=== PATIENT | female | born 1945 | race Caucasian/White ===

== ENCOUNTER 2018-01-02 12:47 | Inpatient (IN) ==
[2018-01-02] MEDS ORDERED: 0.9 % Sodium Chloride 1,000 ML IVC ONE (13:11)
--- NOTE | 2018-01-02 13:30 | Emergency Department Note ---
Disposition Clinical Impression: Dehydration, Renal insufficiency Hypotension Qualifiers: Hypotension type: other hypotension type Qualified Code(s): I95.89 - Other hypotension Altered mental status Qualifiers: Altered mental status type: somnolence Qualified Code(s): R40.0 - Somnolence UTI (urinary tract infection) Qualifiers: Urinary tract infection type: site unspecified Hematuria presence: without hematuria Qualified Code(s): N39.0 - Urinary tract infection, site not specified Disposition: Admitted As Inpatient Condition: Fair Altered Mental Status HPI - General Chief Complaint: ED Altered Mental Status Stated Complaint: AMS Time Seen by Provider: 01/02/18 12:55 Source: patient, EMS Limitations: altered mental status Nursing Notes Reviewed: Yes Vital Signs Reviewed: Yes - History of Present Illness HPI Narrative: 72-year-old female presents ED because of generalized weakness and altered mental status. She has been feeling ill since yesterday with weakness to the point she is unable to get herself off the toilet. Denies any new focal pain. No fevers or chills. No productive cough. She has had a couple episodes of diarrhea in the past 24 hours which is fairly typical for her. No vomiting. No abdominal pain. No dysuria, hematuria polyuria. MD complaint: altered mental status, weakness Pain Severity: mild (Chronic neck pain) Consistency of Symptoms: waxing and waning Associated symptoms: Denies: chest pain, cough, diaphoresis - Related Data Home Medications Medication Instructions Recorded Confirmed Aspirin 325 mg PO QAM 06/11/15 01/02/18 Carvedilol [Coreg] 3.125 mg PO BID 06/11/15 01/02/18 Cyanocobalamin (Vitamin B-12) 1,000 mcg IJ QMONTH 06/11/15 01/02/18 [Vitamin B-12] Ergocalciferol (VITAMIN D2) 50,000 unit PO 2XW 06/11/15 01/02/18 [Vitamin D2 (50,000 UNIT)] Furosemide [Lasix] 20 mg PO DAILY PRN 06/11/15 01/02/18 Losartan [Cozaar] 50 mg PO QAM 06/11/15 01/02/18 Pregabalin [Lyrica] 75 mg PO BID 06/11/15 01/02/18 Rifaximin [Xifaxan] 200 mg PO BID PRN 06/11/15 01/02/18 cloNIDine HCl [CloNIDine HCl] 0.1 mg PO BID 06/11/15 01/02/18 HYDROcodone/Acet 10/325 mg [[place] 1 tab PO Q6HR PRN 08/27/17 01/02/18 10-325 mg] Citalopram Hydrobromide 20 mg PO DAILY 01/02/18 01/02/18 [Citalopram HBr] Diphenoxylate/Atropine [Lomotil 1 tab PO DAILY PRN 01/02/18 01/02/18 2.5 mg/0.025 mg] Folic Acid 1 mg PO DAILY 01/02/18 01/02/18 Morphine Sulfate [Arymo ER] 15 mg PO Q12H 01/02/18 01/02/18 Allergies Allergy/AdvReac Type Severity Reaction Status Date / Time adhesive tape Allergy Blister Verified 05/20/17 15:32 Amoxicillin Allergy Rash Verified 05/20/17 15:32 Constitutional: Denies: fever, chills Cardiovascular: Denies: chest pain Respiratory: Denies: cough, dyspnea Gastrointestinal: Reports: diarrhea. Denies: abdominal pain, vomiting Genitourinary: Denies: urgency, dysuria Past Medical History - Past Medical History Attestation: Yes The following information was validated with the patient. Medical history: Reports: hypertension, osteoporosis Surgical history: Reports: cholecystectomy, knee replacement, orthopedic, other , other Psychiatric history: Reports: anxiety, depression [employer] history: Reports: other - Social History Smoking Status: Never smoker Smokeless Tobacco Status: No Alcohol use: Reports: occasionally Drug use: Reports: none Physical Exam - General Limitations: altered mental status General appearance: lethargic - Head Head exam: atraumatic, normocephalic - Eye Eye exam: Present: normal appearance - ENT ENT exam: normal exam, mucous membranes dry - Neck Neck exam: Present: normal inspection, full ROM, trachea midline - Chest Chest inspection: Present: normal inspection, symmetric chest wall rise - Respiratory Respiratory exam: Present: other (Symmetrically diminished breath sounds bilaterally) - Cardiovascular Cardiovascular exam: Present: regular rate - Abdominal Exam Abdominal exam: Present: soft, Non-Tender - Expanded Lower Extremity Exam Knee exam: Present: swelling Neurovascular/Tendon exam: Absent: motor deficit, sensory deficit - Back Exam Back exam: Absent: CVA tenderness (R), CVA tenderness (L) - Neurological Exam Neurological exam: Present: alert, oriented X3 - Psychiatric Psychiatric exam: Present: flat affect. Absent: normal affect - Skin Skin exam: Present: warm, dry Course - Reevaluation(s) Reevaluation #1: Blood pressure has improved with IV fluids and her mentation is also improved. Daughter still feels she is not back to her baseline so she will get a CT of her head prior to admission. UTIs noted he will be treated empirically. Time: 15:46 Reevaluation #2: D/W Dr. Méndez to admit Still awaiting lactate Time: 16:18 Vital Signs Temperature 98.1 F 01/02/18 12:48 Pulse Rate 68 01/02/18 12:48 Respiratory Rate 18 01/02/18 12:48 Blood Pressure 79/51 01/02/18 12:48 O2 Sat by Pulse Oximetry 98 01/02/18 12:48 Temperature 98.1 F 01/02/18 12:48 Pulse Rate 78 01/02/18 16:23 Respiratory Rate 18 01/02/18 17:18 Blood Pressure 110/73 01/02/18 17:18 O2 Sat by Pulse Oximetry 98 01/02/18 16:23 Oxygen Delivery Oxygen Delivery Room Air Altered Mental Status - Lab Data Result diagrams: 01/02/18 13:53 01/02/18 13:53 Lab Results 01/02/18 01/02/18 01/02/18 Range/Units 13:53 13:53 13:53 WBC 12.3 H (4.3-11.1) K/mcL RBC 3.84 (3.82-4.97) M/mcL Hgb 11.8 (11.5-15.4) g/dL Hct 39.6 (35.3-44.9) % MCV 103.1 H (83.0-100.0) fL MCH 30.7 (28.0-33.3) pg MCHC 29.8 L (31.6-35.5) g/dL RDW 15.1 H (11.5-14.5) % Plt Count 144 (140-400) K/mcL MPV 11.2 (9.4-12.4) fL Immature Gran % 0.7 (0-4) % Seg Neutrophils % 83.5 % Lymphocytes % 8.0 % Monocytes % 7.7 % Eosinophils % 0.0 % Basophils % 0.1 % Neutrophils # 10.2 H (1.6-8.9) K/mcL Lymphocytes # 1.0 (0.6-4.6) K/mcL Monocytes # 1.0 (0.0-1.3) K/mcL Eosinophils # 0.0 (0.0-0.6) K/mcL Basophils # 0.0 (0.0-0.2) K/mcL Sodium 137 (136-145) mEq/L Potassium 4.3 (3.5-5.1) mEq/L Chloride 107 (98-107) mEq/L Carbon Dioxide 17 L (23-29) mEq/L BUN 59 H (8-23) mg/dL Creatinine 3.00 H (0.60-1.20) mg/dL Est GFR ( Amer) 19 L (> 60) Est GFR (Non-Af Amer) 15 L (> 60) BUN/Creatinine Ratio 20 (6-26) Glucose 105 (70-105) mg/dL Calculated Osmolality 301 H (280-300) Lactic Acid (0.5-2.2) mmol/L Calcium 7.6 L (8.6-10.3) mg/dL Total Bilirubin 0.8 (0.3-1.0) mg/dL Direct Bilirubin 0.2 (0.0-0.2) mg/dL Indirect Bilirubin 0.6 (0.0-1.2) mg/dL AST 408 H (13-39) Units/L ALT 145 H (7-52) Units/L Alkaline Phosphatase 69 (34-104) Units/L Troponin I 0.04 H* (< 0.04) ng/mL Serum Total Protein 6.2 L (6.4-8.9) g/dL Albumin 3.8 (3.5-5.7) g/dL Globulin 2.4 (2.4-3.5) g/dL Albumin/Globulin Ratio 1.6 (1.1-2.2) Urine Color (Yellow) Urine Clarity (Clear) Urine pH (5.0-8.0) pH Units Ur Specific [place] (1.010-1.025) Urine Protein (Neg-Trace) mg/dL Urine Glucose (UA) (Normal) mg/dL Urine Ketones (Negative) mg/dL Urine Blood (Negative) Urine Nitrite (Negative) Urine Bilirubin (Negative) Urine Urobilinogen (Normal) mg/dL Ur Leukocyte Esterase (Negative) Urine Microscopic RBC (0-3) per hpf Urine Microscopic WBC (0-3) per hpf Ur Squamous Epith Cells (None-Few) per lpf Ur Transition Epith Cell (None-Few) per hpf Amorphous Sediment (Few) Urine Bacteria (None-Few) per hpf Ur Culture Indicated? (NO) Specimen Rejected 01/02/18 01/02/18 01/02/18 Range/Units 13:53 14:42 16:01 WBC (4.3-11.1) K/mcL RBC (3.82-4.97) M/mcL Hgb (11.5-15.4) g/dL Hct (35.3-44.9) % MCV (83.0-100.0) fL MCH (28.0-33.3) pg MCHC (31.6-35.5) g/dL RDW (11.5-14.5) % Plt Count (140-400) K/mcL MPV (9.4-12.4) fL Immature Gran % (0-4) % Seg Neutrophils % % Lymphocytes % % Monocytes % % Eosinophils % % Basophils % % Neutrophils # (1.6-8.9) K/mcL Lymphocytes # (0.6-4.6) K/mcL Monocytes # (0.0-1.3) K/mcL Eosinophils # (0.0-0.6) K/mcL Basophils # (0.0-0.2) K/mcL Sodium (136-145) mEq/L Potassium (3.5-5.1) mEq/L Chloride (98-107) mEq/L Carbon Dioxide (23-29) mEq/L BUN (8-23) mg/dL Creatinine (0.60-1.20) mg/dL Est GFR ( Amer) (> 60) Est GFR (Non-Af Amer) (> 60) BUN/Creatinine Ratio (6-26) Glucose (70-105) mg/dL Calculated Osmolality (280-300) Lactic Acid 1.5 (0.5-2.2) mmol/L Calcium (8.6-10.3) mg/dL Total Bilirubin (0.3-1.0) mg/dL Direct Bilirubin (0.0-0.2) mg/dL Indirect Bilirubin (0.0-1.2) mg/dL AST (13-39) Units/L ALT (7-52) Units/L Alkaline Phosphatase (34-104) Units/L Troponin I (< 0.04) ng/mL Serum Total Protein (6.4-8.9) g/dL Albumin (3.5-5.7) g/dL Globulin (2.4-3.5) g/dL Albumin/Globulin Ratio (1.1-2.2) Urine Color Dark Yellow (Yellow) Urine Clarity Cloudy A (Clear) Urine pH 5.0 (5.0-8.0) pH Units Ur Specific [place] 1.026 H (1.010-1.025) Urine Protein 30 H (Neg-Trace) mg/dL Urine Glucose (UA) Normal (Normal) mg/dL Urine Ketones Trace H (Negative) mg/dL Urine Blood Large H (Negative) Urine Nitrite Negative (Negative) Urine Bilirubin Small H (Negative) Urine Urobilinogen Normal (Normal) mg/dL Ur Leukocyte Esterase Moderate H (Negative) Urine Microscopic RBC 5-15 H (0-3) per hpf Urine Microscopic WBC 30-50 H (0-3) per hpf Ur Squamous Epith Cells Few (None-Few) per lpf Ur Transition Epith Cell Few (None-Few) per hpf Amorphous Sediment Few (Few) Urine Bacteria Moderate H (None-Few) per hpf Ur Culture Indicated? YES A (NO) Specimen Rejected Miscellaneous - EKG Data EKG attestation: Yes I reviewed and interpreted this EKG. EKG results narrative: Atrial and ventricular paced rhythm with a rate of 80. No further interpretation is possible TPA Checklist - LKW: 3-4.5 hrs Add. Warnings/Precautions Patient/family understanding: The patient/family members have been counseled and understood the risk, benefit , and alternatives of treatment. Critical Care Time Total Critical Care Time: 32 Attestation: The high probability of a clinically significant, sudden or life threatening deterioration of the [cerebrovascular, renal] system(s) required my full and direct attention, intervention and personal management. The aggregate critical care time was [32] minutes. This time is in addition to time spent performing reported procedures but includes the following: [x] Data Review and interpretation [x] Patient assessment and monitoring of vital signs [x] Documentation [x] Medication orders and management
[2018-01-02 14:02] LABS: Basophils % 0.1 %; Hematocrit 39.6 % (35.3-44.9); Hemoglobin 11.8 g/dL (11.5-15.4); Immature Granulocytes % 0.7 % (0-4); Mean Corpuscular HGB Conc 29.8 g/dL (31.6-35.5); Mean Corpuscular Hemoglobin 30.7 pg (28.0-33.3); Mean Corpuscular Volume 103.1 fL (83.0-100.0); Mean Platelet Volume 11.2 fL (9.4-12.4); Monocytes % 7.7 %; Neutrophils # 10.2 K/mcL (1.6-8.9); Platelet Count 144 K/mcL (140-400); Red Blood Count 3.84 M/mcL (3.82-4.97); Red Cell Distribution Width 15.1 % (11.5-14.5); Segmented Neutrophils % 83.5 %
[2018-01-02 14:22] LABS: Albumin 3.8 g/dL (3.5-5.7); Albumin/Globulin Ratio 1.6 (1.1-2.2); Bilirubin,Direct 0.2 mg/dL (0.0-0.2); Bilirubin,Indirect 0.6 mg/dL (0.0-1.2); Bilirubin,Total 0.8 mg/dL (0.3-1.0); Calcium 7.6 mg/dL (8.6-10.3); Globulin 2.4 g/dL (2.4-3.5); Potassium 4.3 mEq/L (3.5-5.1); Total Protein 6.2 g/dL (6.4-8.9)
[2018-01-02 14:31] LABS: Troponin I 0.04 ng/mL (< 0.04)
[2018-01-02 14:47] LABS: Bilirubin,Urine Small (Negative); Blood,Urine Large (Negative); Clarity,Urine Cloudy (Clear); Color,Urine Dark Yellow (Yellow); Glucose,Urine (UA) Normal (Normal); Ketones,Urine Trace mg/dL (Negative); Leukocyte Esterase,Urine Moderate (Negative); Nitrite,Urine Negative (Negative); Protein,Urine 30 mg/dL (Neg-Trace); Specific Gravity,Urine 1.026 (1.010-1.025); Urobilinogen,Urine Normal (Normal)
[2018-01-02 14:49] LABS: Bacteria,Urine Moderate per hpf (None-Few); Squamous Epithelial Cell,Urine Few per lpf (None-Few); WBC,Urine 30-50 per hpf (0-3)
[2018-01-02 15:00] LABS: Amorphous Sediment,Urine Few (Few)
[2018-01-02 15:02] LABS: Transitional Epi Cells,Urine Few per hpf (None-Few)
[2018-01-02] MEDS: Ringers Solution, Lactated 1,000 ML IVC SCH (15:14)
[2018-01-02] MEDS ORDERED: cefTRIAXone 1,000 MG in Water for inj. (sterile) 20 ML 10 ML IVP ONE (15:49)
[2018-01-02] MEDS ORDERED: Naloxone 0.4 MG/ML INJ IVP PRN (17:12)
[2018-01-02] MEDS ORDERED: 0.9 % Sodium Chloride 1,000 ML IVC SCH ×2 (17:30→20:07)
--- NOTE | 2018-01-02 17:35 | Internal Med History&Physical ---
Date of Encounter: 01/02/18 Time of Encounter: 17:08 Internal Medicine - H&P: HPI Admitted From: Home Plans for Post Hospital Care: Home History of present illness: Ms. Arnett is a 72 year old female with history of hypertension, pacemaker due to unknown reason, chronic back and neck pain and has been on lots of pain medicine was brought to emergency room by EMS after finding very drowsy and altered mental status at home by her son-in-law. Patient is staying alone for last few days as her is [place] and yesterday her daughter called and found to be little confused but is still communicative. Today morning her son- in-law came to checked on her and found on commode very drowsy with altered sensorium therefore called EMS. Patient is not able to provide very good history is very sleepy but arousable. Patient has few episodes of diarrhea in the past and decreased oral intake while taking care of her and is staying alone. She denies fever, chills, vomiting, headache, dizziness, chest pain, shortness of breath, tingling numbness. Decreased urine output. Past Med Surg Social Fam HX - Past Medical History Medical history: hypertension, osteoporosis Psychiatric history: anxiety, depression - Past Surgical History Surgical History: cholecystectomy, knee replacement, orthopedic, other, other - Social History Smoking Status: Never smoker Smokeless Tobacco Status: No Alcohol use: occasionally Drug use: none - Family History Mother Hx Family Cardiac Disorders: Yes (angina) Internal Medicine - H&P: Meds Aspirin 325 mg PO QAM 06/11/15 [History] Carvedilol [Coreg] 3.125 mg PO BID 06/11/15 [History] Cyanocobalamin (Vitamin B-12) [Vitamin B-12] 1,000 mcg IJ QMONTH 06/11/15 [ History] Ergocalciferol (VITAMIN D2) [Vitamin D2 (50,000 UNIT)] 50,000 unit PO 2XW [History] Furosemide [Lasix] 20 mg PO DAILY PRN 06/11/15 [History] Losartan [Cozaar] 50 mg PO QAM 06/11/15 [History] Pregabalin [Lyrica] 75 mg PO BID 06/11/15 [History] Rifaximin [Xifaxan] 200 mg PO BID PRN 06/11/15 [History] cloNIDine HCl [CloNIDine HCl] 0.1 mg PO BID 06/11/15 [History] HYDROcodone/Acet 10/325 mg [[place] 10-325 mg] 1 tab PO Q6HR PRN 08/27/17 [History ] Citalopram Hydrobromide [Citalopram HBr] 20 mg PO DAILY 01/02/18 [History] Diphenoxylate/Atropine [Lomotil 2.5 mg/0.025 mg] 1 tab PO DAILY PRN 01/02/18 [ History] Folic Acid 1 mg PO DAILY 01/02/18 [History] Morphine Sulfate [Arymo ER] 15 mg PO Q12H 01/02/18 [History] 3 Allergy/AdvReac Type Severity Reaction Status Date / Time adhesive tape Allergy Blister Verified 05/20/17 15:32 Amoxicillin Allergy Rash Verified 05/20/17 15:32 All Systems PM: A 10-system review of systems was performed and is negative for pertinent findings except as documented above in the HPI. - Constitutional Vitals: Temp Pulse Resp BP Pulse Ox 98.1 F 78 14 106/85 98 01/02/18 12:48 01/02/18 16:23 01/02/18 16:23 01/02/18 16:23 01/02/18 16:23 Exam: General appearance: Very sleepy, drowsy but arousable. Daughter at bedside who was the main source of history Head exam: Atraumatic Eye exam: EOMI, PERRLA ENT exam: Dry oral mucosa Neck nontender, supple Respiratory exam: Clear to auscultation bilaterally Cardiovascular exam: Regular rate and rhythm, no systolic murmur Abdominal exam: Soft, nontender, nondistended, positive bowel sounds Extremities exam: No calf tenderness, no pedal edema Present: Skin-no rash, warm, dry, intact Neurological exam: Oriented to person and place and time but very slow response due to being very sleepy, CN II-XII intact, no focal deficits. No facial droop. Normal speech. Internal Med - H&P Results - Labs CBC & Chem 7: 01/02/18 13:53 01/02/18 13:53 - Assessment and plan (1) Altered mental status Current Visit: Yes Status: Acute Assessment and plan: No focal neurological deficit. CT brain with no acute finding. Most likely due to underlying UTI and dehydration. Treat underlying cause. Close monitoring. Fall precaution. May need PT evaluation once recover with acute illness. Would also decrease medication especially narcotics that can cause sedation thinking contributing factor for altered sensorium. Qualifiers: Altered mental status type: somnolence Qualified Code(s): R40.0 - Somnolence (2) Hypotension Current Visit: Yes Status: Acute Assessment and plan: Most likely volume depletion. She has been also on diuretic and decreased oral in take and last couple of days while taking care of her who is in [place] hospital. Volume resuscitation done the ER. Will continue normal saline 100 mL per hour with a strict I&O. Blood pressure started to improve after fluid resuscitation and also slight better mentally status therefore close monitoring needed. Qualifiers: Qualified Code(s): I95.9 - Hypotension, unspecified (3) SANTANA (acute kidney injury) Current Visit: Yes Status: Acute Assessment and plan: Patient had normal creatinine level in October 2017. Most likely prerenal due to volume depletion. Patient also has been taking diuretic medicine and decreased by mouth intake and chronic persistent diarrhea. Avoid nephrotoxic drugs. Close monitoring of BMP. Gentle hydration with I&O's. (4) UTI (urinary tract infection) Current Visit: Yes Status: Acute Assessment and plan: Urine culture and blood culture ordered in the ER. Will also order lactate. Renal dose adjusted Levaquin is started. Patient has amoxicillin allergy, Rocephin was given in the ER. Patient had microscopic hematuria on urinalysis that could be due to acute infection and urine analysis can be repeated after the treatment. Qualifiers: Qualified Code(s): N39.0 - Urinary tract infection, site not specified; R31.9 - Hematuria, unspecified; R31.9 - Hematuria, unspecified (5) Troponin level elevated Current Visit: Yes Status: Acute Assessment and plan: Patient denies any chest pain or angina-like: Symptom. That could be related with acute illness but will monitor troponin closely. Keep in telemetry. Home medication is started. Held beta ijeoma due to low blood pressure but will resume once blood pressure is stabilized. (6) DVT prophylaxis Current Visit: No Status: Acute Assessment and plan: SCDs - Time Spent With Patient Total time spent is greater than 50% in coordination of care (as documented) at patient's floor/unit and/or counseling patient:
[2018-01-02] MEDS ORDERED: Levofloxacin 500 MG/100 ML 500 MG/100 ML BAG IVPB SCH (18:00)
[2018-01-02 19:30] LABS: Creatine Kinase > 20000 Units/L (30-223)
[2018-01-03 02:26] LABS: Basophils % 0.2 %; Eosinophils % 0.1 %; Hematocrit 32.3 % (35.3-44.9); Immature Granulocytes % 0.4 % (0-4); Lymphocytes # 0.7 K/mcL (0.6-4.6); Lymphocytes % 7.1 %; Mean Corpuscular Hemoglobin 30.5 pg (28.0-33.3); Mean Corpuscular Volume 98.5 fL (83.0-100.0); Monocytes # 0.6 K/mcL (0.0-1.3); Monocytes % 6.7 %; Neutrophils # 8.2 K/mcL (1.6-8.9); Platelet Count 121 K/mcL (140-400); Red Blood Count 3.28 M/mcL (3.82-4.97); Red Cell Distribution Width 15.2 % (11.5-14.5); Segmented Neutrophils % 85.5 %
[2018-01-03 02:45] LABS: Calcium 6.7 mg/dL (8.6-10.3); Chol/HDL Ratio 2.3 (0-4.9); Potassium 4.2 mEq/L (3.5-5.1)
[2018-01-03] MEDS: Ringers Solution, Lactated 1,000 ML IVC SCH ×2 (05:59→23:00)
--- NOTE | 2018-01-03 07:43 | Nephrology Consult Note ---
Date of Encounter: 01/03/18 Time of Encounter: 07:40 Assessment and Plan (1) SANTANA (acute kidney injury) Current Visit: Yes Status: Acute Patient has acute kidney injury in the setting of rhabdomyolysis. Serum creatinine may be reaching a plateau. She has associated metabolic acidosis and hypocalcemia because of the rhabdomyolysis. We will change her maintenance IV to include some bicarbonate replacement. Her calcium should not be replaced unless she becomes symptomatic from hypocalcemia. (2) Rhabdomyolysis Current Visit: Yes Status: Acute Qualifiers: Rhabdomyolysis type: non-traumatic Qualified Code(s): M62.82 - Rhabdomyolysis (3) Altered mental status Current Visit: Yes Status: Acute Qualifiers: Altered mental status type: somnolence Qualified Code(s): R40.0 - Somnolence History of Present Illness - History of Present Illness This is a 72-year-old female who was found by her family at home. She apparently was confused and according to history had been sitting on the commode at home for a long time. This morning the patient is more alert and oriented. She reports that she was told by her family that she has been on the commode for about 12 hours or so. Patient presented with rhabdomyolysis and acute kidney injury. Creatinine on admission was 3.00. Creatinine this morning is relatively stable at 3.13. Baseline creatinine is 0.72. On presentation patient was hypotensive with a blood pressure of 79/51. She has been maintained on IV fluids overnight. Current blood pressure 108/70. She is complaining of muscle soreness in the gluteal area and also complaining of a sore neck. CPK yesterday was greater than 20,000. Past Med Surg Social Fam HX - Past Medical History Medical history: hypertension, osteoporosis Psychiatric history: anxiety, depression - Past Surgical History Surgical History: cholecystectomy, knee replacement, orthopedic, other, other - Social History Smoking Status: Never smoker Smokeless Tobacco Status: No Alcohol use: occasionally Drug use: none - Family History Mother Hx Family Cardiac Disorders: Yes (angina) Medications and Allergies Aspirin 325 mg PO QAM 06/11/15 [History] Carvedilol [Coreg] 3.125 mg PO BID 06/11/15 [History] Cyanocobalamin (Vitamin B-12) [Vitamin B-12] 1,000 mcg IJ QMONTH 06/11/15 [ History] Ergocalciferol (VITAMIN D2) [Vitamin D2 (50,000 UNIT)] 50,000 unit PO 2XW [History] Furosemide [Lasix] 20 mg PO DAILY PRN 06/11/15 [History] Losartan [Cozaar] 50 mg PO QAM 06/11/15 [History] Pregabalin [Lyrica] 75 mg PO BID 06/11/15 [History] Rifaximin [Xifaxan] 200 mg PO BID PRN 06/11/15 [History] cloNIDine HCl [CloNIDine HCl] 0.1 mg PO BID 06/11/15 [History] HYDROcodone/Acet 10/325 mg [[place] 10-325 mg] 1 tab PO Q6HR PRN 08/27/17 [History ] Citalopram Hydrobromide [Citalopram HBr] 20 mg PO DAILY 01/02/18 [History] Diphenoxylate/Atropine [Lomotil 2.5 mg/0.025 mg] 1 tab PO DAILY PRN 01/02/18 [ History] Folic Acid 1 mg PO DAILY 01/02/18 [History] Morphine Sulfate [Arymo ER] 15 mg PO Q12H 01/02/18 [History] 3 Allergy/AdvReac Type Severity Reaction Status Date / Time adhesive tape Allergy Blister Verified 05/20/17 15:32 Amoxicillin Allergy Rash Verified 05/20/17 15:32 Review of Systems Constitutional: weakness Eyes: bilateral: blurred vision (patient denies), diplopia (patient denies) Nose, mouth and throat: no dizziness, no headache(s) Cardiovascular: no chest pain, no palpitations Respiratory: no cough, no dyspnea Gastrointestinal: no abdominal pain, no change in bowel habits Musculoskeletal: muscle cramps, muscle weakness, myalgias, neck pain, no numbness Integumentary: no hirsutism, no striae Neurological: weakness Psychiatric: no depression, no difficulty concentrating Endocrine: as per HPI Hematologic/Lymphatic: no easy bruising, no lymphadenopathy Exam - Vital Signs Vital signs: Initial Vital Signs Temp Pulse Resp BP Pulse Ox 98.1 F 68 18 79/51 98 01/02/18 12:48 01/02/18 12:48 01/02/18 12:48 01/02/18 12:48 01/02/18 12:48 Vital Signs - Last 8 Hours Temp Pulse Resp BP Pulse Ox 01/03/18 07:15 99.6 F 80 13 99/62 95 01/03/18 03:35 99.8 F H 73 18 108/70 93 01/02/18 23:52 99.2 F 90 18 95/61 96 Intake and Output 01/02/18 01/02/18 01/03/18 15:59 23:59 07:59 Intake Total 512 / 512 488 / 488 Balance 512 / 512 488 / 488 Intake: IV Fluids 512 / 512 488 / 488 Lactated Ringers 1,000 ML @ 150 512 / 512 488 / 488 mls/hr IVC .[id number] [facility]OR[facility] Rx#: [id number] Other: Weight 96.9 kg 103.1 kg Blood Glucose* 84 88 Patient Weight 01/03/18 23:59 Weight 103.1 kg - General Appearance Exam: Patient appears alert and oriented. She is able to answer questions. She is in no acute distress. Blood pressure 108/70. Lungs essentially clear to auscultation. Heart regular rate and rhythm without any friction rub. Abdomen shows normal bowel sounds bruits masses or megaly or tenderness. Lower extremities show no edema. There are no abnormal skin rashes. Results - Lab Results 01/03/18 02:06 01/03/18 02:06 Most recent lab results Calcium 6.7 mg/dL (8.6-10.3) L 01/03/18 02:06 Consult Discharge Plan - Plan Referrals: NONE,PCP [Primary Care Provider] -
[2018-01-03] MEDS ORDERED: Sodium Bicarbonate 100 MEQ in 0.45 % Sodium Chloride 1,000 ML IVC SCH ×2 (07:45→13:54)
[2018-01-03] MEDS: Aspirin 325 MG TABLET PO SCH (07:52)
[2018-01-03] MEDS: Folic Acid 1 MG TABLET PO SCH (07:52)
[2018-01-03 08:47] LABS: Troponin I 0.08 ng/mL (< 0.04)
[2018-01-03 09:22] LABS: Phosphorous 8.6 mg/dL (2.7-4.5); Uric Acid 7.2 mg/dL (2.3-7.6)
--- NOTE | 2018-01-03 13:57 | Internal Med Progress Note ---
Date of Encounter: 01/03/18 Time of Encounter: 13:45 - Assessment and plan (1) Rhabdomyolysis Current Visit: Yes Status: Acute Assessment and plan: Patient has had no urine since admission. The bladder scan the patient during my exam. Around 900 mL of residual urine noted. Hernandez catheter will be placed. We will double the rate of IV fluids 200 mL and output target of 200 mL /h off urine output. Also check a CK now. (2) SANTANA (acute kidney injury) Current Visit: Yes Status: Acute Assessment and plan: Progressive worsening of kidney function noted. She is not on a high rate of IV fluids which we will increase now. Explained to patient that if the function does not improve and his progressive deterioration with acidemia or electrolyte disturbance, she may need dialysis. (3) UTI (urinary tract infection) Current Visit: Yes Status: Acute Assessment and plan: Continue Levaquin and follow urine and blood cultures. Gram-negative janessa noted in urine culture. Qualifiers: Qualified Code(s): N39.0 - Urinary tract infection, site not specified (4) Troponin level elevated Current Visit: Yes Status: Acute Assessment and plan: Related to rhabdomyolysis. (5) DVT prophylaxis Current Visit: No Status: Acute Assessment and plan: Lovenox - Time Spent With Patient Total time spent is greater than 50% in coordination of care (as documented) at patient's floor/unit and/or counseling patient: 25 - 35 minutes - Subjective Interval history: She reports urinary distention. Has not urinated since admission. Also noted were pain in the abdomen and gluteal areas per patient. - Constitutional Vitals: Temp Pulse Resp BP Pulse Ox 99.0 F 77 14 96/60 95 01/03/18 11:52 01/03/18 11:52 01/03/18 11:52 01/03/18 11:52 01/03/18 11:52 General appearance: Present: A&O X 3 Exam: Physical exam Gen: Comfortable, laying in bed, in no visible distress, morbidly obese HEENT: Normocephalic, atraumatic. No conjunctival icterus. Moist oral mucosa. Neck: Supple Lungs: Clear to auscultation, no foreign sounds Heart: Normal S1-S2, no murmurs rubs or gallops Abdomen: Normoactive bowel sounds, no guarding rigidity or tenderness Extremities: Trace edema of lower extremities. No clubbing or cyanosis Neuro: Alert oriented 3, no focal deficits Skin: Right gluteal area has salmon-colored marking at the site off muscle damage. There is bruising with purpura of the right arm. Pulses are intact in both lower extremities. Internal Medicine: Result - Labs CBC & Chem 7: 01/03/18 02:06 01/03/18 02:06 Labs: Short CBC 01/02/18 01/02/18 01/02/18 Range/Units 17:43 18:20 20:01 WBC (4.3-11.1) K/mcL RBC (3.82-4.97) M/mcL Hgb (11.5-15.4) g/dL Hct (35.3-44.9) % MCV (83.0-100.0) fL MCH (28.0-33.3) pg MCHC (31.6-35.5) g/dL RDW (11.5-14.5) % Plt Count (140-400) K/mcL MPV (9.4-12.4) fL Immature Gran % (0-4) % Seg Neutrophils % % Lymphocytes % % Monocytes % % Eosinophils % % Basophils % % Neutrophils # (1.6-8.9) K/mcL Lymphocytes # (0.6-4.6) K/mcL Monocytes # (0.0-1.3) K/mcL Eosinophils # (0.0-0.6) K/mcL Basophils # (0.0-0.2) K/mcL Sodium (136-145) mEq/L Potassium (3.5-5.1) mEq/L Chloride (98-107) mEq/L Carbon Dioxide (23-29) mEq/L BUN (8-23) mg/dL Creatinine (0.60-1.20) mg/dL Est GFR ( Amer) (> 60) Est GFR (Non-Af Amer) (> 60) BUN/Creatinine Ratio (6-26) Glucose (70-105) mg/dL POC Glucose 84 (70-99) mg/dL Calculated Osmolality (280-300) Lactic Acid 2.0 (0.5-2.2) mmol/L Uric Acid (2.3-7.6) mg/dL Calcium (8.6-10.3) mg/dL Phosphorus (2.7-4.5) mg/dL Troponin I 0.06 H* (< 0.04) ng/mL Triglycerides (< 150) mg/dL Cholesterol (< 200) mg/dL LDL Cholesterol, Calc (0-99) mg/dL VLDL Cholesterol, Calc (< 31) mg/dL HDL Cholesterol (40-59) mg/dL Cholesterol/HDL Ratio (0-4.9) Specimen Rejected 01/03/18 01/03/18 01/03/18 Range/Units 02:06 02:06 02:06 WBC 9.6 (4.3-11.1) K/mcL RBC 3.28 L (3.82-4.97) M/mcL Hgb 10.0 L D (11.5-15.4) g/dL Hct 32.3 L (35.3-44.9) % MCV 98.5 (83.0-100.0) fL MCH 30.5 (28.0-33.3) pg MCHC 31.0 L (31.6-35.5) g/dL RDW 15.2 H (11.5-14.5) % Plt Count 121 L (140-400) K/mcL MPV 11.0 (9.4-12.4) fL Immature Gran % 0.4 (0-4) % Seg Neutrophils % 85.5 % Lymphocytes % 7.1 % Monocytes % 6.7 % Eosinophils % 0.1 % Basophils % 0.2 % Neutrophils # 8.2 (1.6-8.9) K/mcL Lymphocytes # 0.7 (0.6-4.6) K/mcL Monocytes # 0.6 (0.0-1.3) K/mcL Eosinophils # 0.0 (0.0-0.6) K/mcL Basophils # 0.0 (0.0-0.2) K/mcL Sodium 136 (136-145) mEq/L Potassium 4.2 (3.5-5.1) mEq/L Chloride 108 H (98-107) mEq/L Carbon Dioxide 17 L (23-29) mEq/L BUN 63 H (8-23) mg/dL Creatinine 3.13 H (0.60-1.20) mg/dL Est GFR ( Amer) 18 L (> 60) Est GFR (Non-Af Amer) 15 L (> 60) BUN/Creatinine Ratio 20 (6-26) Glucose 103 (70-105) mg/dL POC Glucose (70-99) mg/dL Calculated Osmolality 300 (280-300) Lactic Acid (0.5-2.2) mmol/L Uric Acid (2.3-7.6) mg/dL Calcium 6.7 L (8.6-10.3) mg/dL Phosphorus (2.7-4.5) mg/dL Troponin I 0.07 H* (< 0.04) ng/mL Triglycerides 103 (< 150) mg/dL Cholesterol 101 (< 200) mg/dL LDL Cholesterol, Calc 36 (0-99) mg/dL VLDL Cholesterol, Calc 21 (< 31) mg/dL HDL Cholesterol 44 (40-59) mg/dL Cholesterol/HDL Ratio 2.3 (0-4.9) Specimen Rejected 01/03/18 01/03/18 Range/Units 08:02 08:02 WBC (4.3-11.1) K/mcL RBC (3.82-4.97) M/mcL Hgb (11.5-15.4) g/dL Hct (35.3-44.9) % MCV (83.0-100.0) fL MCH (28.0-33.3) pg MCHC (31.6-35.5) g/dL RDW (11.5-14.5) % Plt Count (140-400) K/mcL MPV (9.4-12.4) fL Immature Gran % (0-4) % Seg Neutrophils % % Lymphocytes % % Monocytes % % Eosinophils % % Basophils % % Neutrophils # (1.6-8.9) K/mcL Lymphocytes # (0.6-4.6) K/mcL Monocytes # (0.0-1.3) K/mcL Eosinophils # (0.0-0.6) K/mcL Basophils # (0.0-0.2) K/mcL Sodium (136-145) mEq/L Potassium (3.5-5.1) mEq/L Chloride (98-107) mEq/L Carbon Dioxide (23-29) mEq/L BUN (8-23) mg/dL Creatinine (0.60-1.20) mg/dL Est GFR ( Amer) (> 60) Est GFR (Non-Af Amer) (> 60) BUN/Creatinine Ratio (6-26) Glucose (70-105) mg/dL POC Glucose (70-99) mg/dL Calculated Osmolality (280-300) Lactic Acid (0.5-2.2) mmol/L Uric Acid 7.2 (2.3-7.6) mg/dL Calcium (8.6-10.3) mg/dL Phosphorus 8.6 H (2.7-4.5) mg/dL Troponin I 0.08 H* (< 0.04) ng/mL Triglycerides (< 150) mg/dL Cholesterol (< 200) mg/dL LDL Cholesterol, Calc (0-99) mg/dL VLDL Cholesterol, Calc (< 31) mg/dL HDL Cholesterol (40-59) mg/dL Cholesterol/HDL Ratio (0-4.9) Specimen Rejected Hemolyzed BMP 01/03/18 02:06 Sodium 136 Potassium 4.2 Chloride 108 H Carbon Dioxide 17 L BUN 63 H Creatinine 3.13 H Glucose 103 Calcium 6.7 L Cardiac Enzymes 01/02/18 01/03/18 01/03/18 Range/Units 20:01 02:06 08:02 Troponin I 0.06 H* 0.07 H* 0.08 H* (< 0.04) ng/mL Consult Discharge Plan - Plan Referrals: NONE,PCP [Primary Care Provider] -
[2018-01-03] MEDS: *HR* HYDROcodone/Acet 10/325 mg TABLET PO PRN (18:16)
[2018-01-03] MEDS ORDERED: 0.9 % Sodium Chloride 500 ML IVC ONE (22:04)
[2018-01-04] MEDS ORDERED: 0.9 % Sodium Chloride 1,000 ML IVC ONE (00:29)
[2018-01-04] MEDS: *HR* HYDROcodone/Acet 10/325 mg TABLET PO PRN ×3 (01:44→17:25)
[2018-01-04 05:08] LABS: Eosinophils # 0.1 K/mcL (0.0-0.6); Eosinophils % 1.3 %; Hematocrit 30.3 % (35.3-44.9); Hemoglobin 9.7 g/dL (11.5-15.4); Immature Granulocytes % 0.7 % (0-4); Lymphocytes # 0.8 K/mcL (0.6-4.6); Lymphocytes % 11.2 %; Mean Corpuscular Hemoglobin 31.4 pg (28.0-33.3); Mean Corpuscular Volume 98.1 fL (83.0-100.0); Mean Platelet Volume 11.9 fL (9.4-12.4); Monocytes # 0.5 K/mcL (0.0-1.3); Monocytes % 7.9 %; Neutrophils # 5.3 K/mcL (1.6-8.9); Platelet Count 109 K/mcL (140-400); Red Blood Count 3.09 M/mcL (3.82-4.97); Red Cell Distribution Width 15.5 % (11.5-14.5); Segmented Neutrophils % 78.9 %
[2018-01-04 05:49] LABS: Albumin 2.3 g/dL (3.5-5.7); Albumin/Globulin Ratio 1.3 (1.1-2.2); Bilirubin,Total 0.3 mg/dL (0.3-1.0); Calcium 7.1 mg/dL (8.6-10.3); Globulin 1.8 g/dL (2.4-3.5); Magnesium 1.9 mg/dL (1.6-2.6); Phosphorous 7.8 mg/dL (2.7-4.5); Potassium 4.2 mEq/L (3.5-5.1); Total Protein 4.1 g/dL (6.4-8.9)
[2018-01-04] MEDS: Folic Acid 1 MG TABLET PO SCH (07:40)
[2018-01-04] MEDS: Aspirin 325 MG TABLET PO SCH (07:40)
[2018-01-04] MEDS: Sodium Bicarbonate 100 MEQ in 0.45 % Sodium Chloride 1,000 ML IVC SCH ×3 (08:44→20:34)
--- NOTE | 2018-01-04 09:44 | Nephrology Progress Note ---
Date of Encounter: 01/04/18 Time of Encounter: 09:42 - Assessment and Plan (1) SANTANA (acute kidney injury) Current Visit: Yes Status: Acute Patient has acute kidney injury in the setting of rhabdomyolysis. Her azotemia continues to worsen. CPK is improving. She has associated hypocalcemia and hyperphosphatemia. Uric acid is satisfactory. She will continue on IV fluids with bicarbonate replacement. We will continue to monitor her renal function. (2) Rhabdomyolysis Current Visit: Yes Status: Acute Qualifiers: Rhabdomyolysis type: non-traumatic Qualified Code(s): M62.82 - Rhabdomyolysis (3) Altered mental status Current Visit: Yes Status: Acute Qualifiers: Altered mental status type: somnolence Qualified Code(s): R40.0 - Somnolence Subjective Interval history: Patient continues to experience some muscle soreness. Her CPK is decreasing but unfortunately her creatinine continues to worsen. CO2 was 19. Potassium is normal. Objective - Vital Signs Vital signs: Vital Signs Temp Pulse Resp BP Pulse Ox 01/04/18 07:38 98.2 F 76 20 137/73 95 01/04/18 04:27 98.2 F 72 16 120/74 94 01/03/18 23:31 98.2 F 74 16 132/67 94 01/03/18 18:32 98.7 F 75 16 101/60 95 01/03/18 16:47 98.1 F 84 14 123/75 97 01/03/18 11:52 99.0 F 77 14 96/60 95 Intake and Output 01/03/18 01/04/18 01/04/18 23:59 07:59 15:59 Intake Total 1900 / 1900 320 / 320 Output Total 120 / 120 800 / 800 Balance 1780 / 1780 -480 / -480 Intake: IV Fluids 1300 / 1300 Sodium Bicarbonate 100 MEQ In 0 1300 / 1300 .45% Sodium Chloride 1000 Ml 1000 Ml 1,000 ML @ 200 mls/hr IVC .[id number] [facility] Rx#: [id number] Oral 600 / 600 320 / 320 Output: Urine 100 / 100 Catheter 120 / 120 700 / 700 Urethral (Hernandez) 20 / 20 250 / 250 Other: Weight 102.4 kg Blood Glucose* 117 89 Patient Weight 01/04/18 23:59 Weight 102.4 kg - General Appearance Exam: Patient appears somewhat sedated. She does answer questions but it takes her a while. She is in no acute distress. Lungs clear to auscultation. Heart regular rate and rhythm. Abdomen is benign. There is no lower extremity swelling. - Lab 01/04/18 04:19 01/04/18 04:19 Most recent lab results Calcium 7.1 mg/dL (8.6-10.3) L 01/04/18 04:19 Phosphorus 7.8 mg/dL (2.7-4.5) H 01/04/18 04:19 Magnesium 1.9 mg/dL (1.6-2.6) 01/04/18 04:19 Consult Discharge Plan - Plan Referrals: NONE,PCP [Primary Care Provider] -
[2018-01-04] MEDS: cefTRIAXone 2,000 MG in Water for inj. (sterile) 20 ML 20 ML IVP SCH (14:31)
[2018-01-04] MEDS: cloNIDine HCl 0.1 MG TABLET PO SCH (20:35)
--- NOTE | 2018-01-04 22:03 | Internal Med Progress Note ---
Date of Encounter: 01/04/18 Time of Encounter: 11:17 - Assessment and plan (1) UTI (urinary tract infection) Current Visit: Yes Status: Acute Assessment and plan: Improving. Switch to IV rocephin based on urine culture and sensitivity. Continue IVF as per below. Qualifiers: Urinary tract infection type: acute cystitis Hematuria presence: with hematuria Qualified Code(s): N30.01 - Acute cystitis with hematuria (2) SANTANA (acute kidney injury) Current Visit: Yes Status: Acute Assessment and plan: Cr worsened. Nephrology consulted; appreciate input. IVF adjusted today by them. Repeat BMP in AM. (3) Rhabdomyolysis Current Visit: Yes Status: Acute Assessment and plan: Continue IVF as per above. Hernandez catheter placed. Continue to monitor I&Os. Repeat CK in AM. (4) Troponin level elevated Current Visit: Yes Status: Acute Assessment and plan: Likely related to rhabdomyolysis. (5) Debility Current Visit: Yes Status: Acute Assessment and plan: Generalized debility. PT/OT consulted. Plan for discharge to [facility] tomorrow. (6) DVT prophylaxis Current Visit: Yes Status: Acute Assessment and plan: Continue lovenox. - Time Spent With Patient Total time spent is greater than 50% in coordination of care (as documented) at patient's floor/unit and/or counseling patient: less than 15 minutes - Subjective Interval history: Patient had no acute events overnight. She denies chest pain, SOB, dysuria, fever, or chills. She has no complaints today. - Constitutional Vitals: Temp Pulse Resp BP Pulse Ox 98.4 F 76 15 146/77 92 01/04/18 20:46 01/04/18 20:46 01/04/18 20:46 01/04/18 20:46 01/04/18 20:46 General appearance: Present: cooperative, A&O X 3, pleasant, no acute distress, answers questions appropriately - Respiratory Respiratory exam: Present: CTAB. Absent: accessory muscle use, rales, rhonchi, wheezes Additional comments: Normal WOB - Cardiovascular Cardiovascular exam: Present: RRR, +S1, +S2. Absent: diastolic murmur, gallop, rubs, systolic murmur Additional comments: No BLE edema - GI/Abdominal GI/Abdominal exam: Present: normal bowel sounds, soft. Absent: distended, guarding, hepatomegaly, mass, rebound, splenomegaly Additional comments: Mild TTP across lower abdomen - Psychiatric Psychiatric exam: Present: normal affect, normal mood. Absent: agitated, anxious, depressed - Skin Skin exam: Present: dry, intact, warm. Absent: cyanosis, rash Internal Medicine: Result - Labs CBC & Chem 7: 01/04/18 04:19 01/04/18 04:19 Labs: Short CBC 01/04/18 Range/Units 04:19 WBC 6.7 (4.3-11.1) K/mcL Hgb 9.7 L (11.5-15.4) g/dL Hct 30.3 L (35.3-44.9) % Plt Count 109 L (140-400) K/mcL Neutrophils # 5.3 (1.6-8.9) K/mcL BMP 01/04/18 04:19 Sodium 139 Potassium 4.2 Chloride 106 Carbon Dioxide 19 L BUN 75 H Creatinine 4.24 H Glucose 95 Calcium 7.1 L Liver Function 01/04/18 Range/Units 04:19 Total Bilirubin 0.3 (0.3-1.0) mg/dL AST 151 H (13-39) Units/L ALT 102 H (7-52) Units/L Alkaline Phosphatase 51 (34-104) Units/L Albumin 2.3 L (3.5-5.7) g/dL Consult Discharge Plan - Plan Referrals: NONE,PCP [Non-Partnered Physician] -
[2018-01-05] MEDS: Sodium Bicarbonate 100 MEQ in 0.45 % Sodium Chloride 1,000 ML IVC SCH ×2 (02:54→09:43)
[2018-01-05] MEDS: *HR* HYDROcodone/Acet 10/325 mg TABLET PO PRN ×3 (04:26→19:12)
[2018-01-05 05:00] LABS: Basophils % 0.2 %; Eosinophils # 0.1 K/mcL (0.0-0.6); Eosinophils % 1.8 %; Hematocrit 30.1 % (35.3-44.9); Hemoglobin 9.7 g/dL (11.5-15.4); Immature Granulocytes % 0.5 % (0-4); Immature Platelets 3.4 % (1.1-6.1); Lymphocytes # 0.8 K/mcL (0.6-4.6); Lymphocytes % 13.7 %; Mean Corpuscular HGB Conc 32.2 g/dL (31.6-35.5); Mean Corpuscular Hemoglobin 30.7 pg (28.0-33.3); Mean Corpuscular Volume 95.3 fL (83.0-100.0); Mean Platelet Volume 11.6 fL (9.4-12.4); Monocytes # 0.4 K/mcL (0.0-1.3); Monocytes % 7.7 %; Neutrophils # 4.2 K/mcL (1.6-8.9); Platelet Count 119 K/mcL (140-400); Red Blood Count 3.16 M/mcL (3.82-4.97); Red Cell Distribution Width 15.3 % (11.5-14.5); Segmented Neutrophils % 76.1 %
--- NOTE | 2018-01-05 05:47 | Electrocardiograph Report ---
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
[2018-01-05 06:15] LABS: Calcium 8.1 mg/dL (8.6-10.3); Potassium 4.3 mEq/L (3.5-5.1)
--- NOTE | 2018-01-05 08:02 | Nephrology Progress Note ---
Date of Encounter: 01/05/18 Time of Encounter: 08:01 - Assessment and Plan (1) SANTANA (acute kidney injury) Current Visit: Yes Status: Acute Patient has acute kidney injury in the setting of rhabdomyolysis. Her azotemia continues to worsen. CPK is improving. She has associated hypocalcemia and hyperphosphatemia. Uric acid is satisfactory. She will continue on IV fluids with bicarbonate replacement. I am going to decrease rate of her IV fluids. We will continue to monitor her renal function. (2) Rhabdomyolysis Current Visit: Yes Status: Acute Qualifiers: Rhabdomyolysis type: non-traumatic Qualified Code(s): M62.82 - Rhabdomyolysis (3) Altered mental status Current Visit: Yes Status: Acute Qualifiers: Altered mental status type: somnolence Qualified Code(s): R40.0 - Somnolence Subjective Interval history: The patient continues to complain of muscle pain. Otherwise she is without any additional complaints. CPK continues to decrease. Unfortunately azotemia continues to worsen. Calcium is a bit better. Vital signs are stable. Urine output is 1.3 L. Objective - Vital Signs Vital signs: Vital Signs Temp Pulse Resp BP Pulse Ox 01/05/18 06:59 98.4 F 76 15 128/62 94 01/05/18 03:47 98.2 F 71 15 128/68 92 01/04/18 23:50 98.2 F 72 15 121/71 94 01/04/18 20:46 98.4 F 76 15 146/77 92 01/04/18 16:56 98.6 F 82 22 152/82 94 01/04/18 11:31 98 F 78 22 120/70 94 Intake and Output 01/04/18 01/05/18 01/05/18 23:59 07:59 15:59 Intake Total 1800 / 1800 1600 / 1600 Output Total 200 / 200 1150 / 1150 Balance 1600 / 1600 450 / 450 Intake: IV Fluids 1000 / 1000 1000 / 1000 Sodium Bicarbonate 100 MEQ In 0 1000 / 1000 1000 / 1000 .45% Sodium Chloride 1000 Ml 1000 Ml 1,000 ML @ 200 mls/hr IVC .[id number] [facility] Rx#:[id number] Oral 800 / 800 600 / 600 Output: Catheter 200 / 200 1150 / 1150 Urethral (Hernandez) 400 / 400 Other: Weight 103 kg Blood Glucose* 104 Patient Weight 01/05/18 23:59 Weight 103 kg - General Appearance Exam: Patient is alert and oriented. She is in no acute distress. Lungs clear to auscultation. Heart regular rate and rhythm. Abdomen is benign. There is no [place] swelling. - Lab 01/05/18 04:32 01/05/18 04:32 Most recent lab results Calcium 8.1 mg/dL (8.6-10.3) L 01/05/18 04:32 Phosphorus 7.8 mg/dL (2.7-4.5) H 01/04/18 04:19 Magnesium 1.9 mg/dL (1.6-2.6) 01/04/18 04:19 Consult Discharge Plan - Plan Referrals: NONE,PCP [Non-Partnered Physician] -
[2018-01-05] MEDS: Aspirin 325 MG TABLET PO SCH (09:09)
[2018-01-05] MEDS: 0.9 % Sodium Chloride 1,000 ML IVC SCH ×2 (09:09→17:51)
[2018-01-05] MEDS: cloNIDine HCl 0.1 MG TABLET PO SCH ×2 (09:09→20:47)
[2018-01-05] MEDS: cefTRIAXone 2,000 MG in Water for inj. (sterile) 20 ML 20 ML IVP SCH (09:10)
[2018-01-05] MEDS: Folic Acid 1 MG TABLET PO SCH (09:10)
[2018-01-05] MEDS: Pregabalin 75 MG CAPSULE PO SCH (17:51)
--- NOTE | 2018-01-05 21:44 | Internal Med Progress Note ---
Date of Encounter: 01/05/18 Time of Encounter: 15:17 - Assessment and plan (1) UTI (urinary tract infection) Current Visit: Yes Status: Acute Assessment and plan: Improving. Urine culture with E. coli sensitive to rocephin. Continue IV rocephin. Continue IVF as per below. Qualifiers: Urinary tract infection type: acute cystitis Hematuria presence: with hematuria Qualified Code(s): N30.01 - Acute cystitis with hematuria (2) SANTANA (acute kidney injury) Current Visit: Yes Status: Acute Assessment and plan: Likely secondary to rhabdomyolysis. Cr worsened again. Nephrology consulted; appreciate input. IVF adjusted today by them. Repeat BMP in AM. (3) Rhabdomyolysis Current Visit: Yes Status: Acute Assessment and plan: Improving. CK continues to trend down, but renal function not improving yet. Continue IVF as per above. Continue will catheter for now. Continue to monitor strict I&Os. Repeat CK in AM. (4) Troponin level elevated Current Visit: Yes Status: Acute Assessment and plan: Likely related to rhabdomyolysis. (5) Debility Current Visit: Yes Status: Acute Assessment and plan: Generalized debility. PT/OT consulted. Plan for discharge to SNF when medically clear. (6) Paresthesia of foot, bilateral Current Visit: Yes Status: Acute Assessment and plan: Get up to chair TID. Restart home lyrica. (7) DVT prophylaxis Current Visit: Yes Status: Acute Assessment and plan: Continue lovenox. - Time Spent With Patient Total time spent is greater than 50% in coordination of care (as documented) at patient's floor/unit and/or counseling patient: less than 15 minutes - Subjective Interval history: Patient had no acute events overnight. She denies chest pain, SOB, dysuria, fever, or chills. She complains of some pain in lower back and tingling in BLE. She has no other complaints today. - Constitutional Vitals: Temp Pulse Resp BP Pulse Ox 97.5 F L 61 18 110/65 96 01/05/18 19:50 01/05/18 19:50 01/05/18 19:50 01/05/18 19:50 01/05/18 19:50 General appearance: Present: cooperative, A&O X 3, morbidly obese, pleasant, no acute distress, answers questions appropriately - Respiratory Respiratory exam: Present: CTAB. Absent: accessory muscle use, rales, rhonchi, wheezes Additional comments: Normal WOB - Cardiovascular Cardiovascular exam: Present: RRR, +S1, +S2. Absent: diastolic murmur, gallop, rubs, systolic murmur Additional comments: 2+ pitting BLE edema - GI/Abdominal GI/Abdominal exam: Present: normal bowel sounds, soft. Absent: distended, hepatomegaly, mass, splenomegaly, tenderness - Back Exam Back exam: Present: normal inspection, paraspinal tenderness - Psychiatric Psychiatric exam: Present: normal affect, normal mood. Absent: agitated, anxious, depressed - Skin Skin exam: Present: dry, intact, warm. Absent: cyanosis, rash Internal Medicine: Result - Labs CBC & Chem 7: 01/05/18 04:32 01/05/18 04:32 Labs: Short CBC 01/05/18 Range/Units 04:32 WBC 5.5 (4.3-11.1) K/mcL Hgb 9.7 L (11.5-15.4) g/dL Hct 30.1 L (35.3-44.9) % Plt Count 119 L (140-400) K/mcL Neutrophils # 4.2 (1.6-8.9) K/mcL BMP 01/05/18 04:32 Sodium 139 Potassium 4.3 Chloride 105 Carbon Dioxide 24 BUN 74 H Creatinine 4.68 H Glucose 99 Calcium 8.1 L Consult Discharge Plan - Plan Referrals: Payam Singh DO [Primary Care Provider] - (WEB REQUEST SENT ON 01/05/18)
[2018-01-06] MEDS: *HR* HYDROcodone/Acet 10/325 mg TABLET PO PRN ×3 (04:38→18:46)
[2018-01-06] MEDS: 0.9 % Sodium Chloride 1,000 ML IVC SCH ×2 (04:39→13:40)
[2018-01-06 06:35] LABS: Basophils % 0.2 %; Eosinophils # 0.2 K/mcL (0.0-0.6); Eosinophils % 3.7 %; Hematocrit 30.9 % (35.3-44.9); Hemoglobin 9.8 g/dL (11.5-15.4); Immature Granulocytes % 0.2 % (0-4); Lymphocytes # 0.8 K/mcL (0.6-4.6); Lymphocytes % 18.3 %; Mean Corpuscular HGB Conc 31.7 g/dL (31.6-35.5); Mean Corpuscular Hemoglobin 30.2 pg (28.0-33.3); Mean Corpuscular Volume 95.4 fL (83.0-100.0); Monocytes # 0.5 K/mcL (0.0-1.3); Monocytes % 10.4 %; Neutrophils # 3.1 K/mcL (1.6-8.9); Platelet Count 123 K/mcL (140-400); Red Blood Count 3.24 M/mcL (3.82-4.97); Red Cell Distribution Width 15.1 % (11.5-14.5); Segmented Neutrophils % 67.2 %
[2018-01-06 06:53] LABS: Albumin 2.2 g/dL (3.5-5.7); Albumin/Globulin Ratio 1.2 (1.1-2.2); Bilirubin,Total 0.3 mg/dL (0.3-1.0); Calcium 8.1 mg/dL (8.6-10.3); Globulin 1.9 g/dL (2.4-3.5); Potassium 4.2 mEq/L (3.5-5.1); Total Protein 4.1 g/dL (6.4-8.9)
[2018-01-06] MEDS: Pregabalin 75 MG CAPSULE PO SCH (08:12)
[2018-01-06] MEDS: cefTRIAXone 2,000 MG in Water for inj. (sterile) 20 ML 20 ML IVP SCH (08:12)
[2018-01-06] MEDS: cloNIDine HCl 0.1 MG TABLET PO SCH ×2 (08:12→21:15)
[2018-01-06] MEDS: Folic Acid 1 MG TABLET PO SCH (08:12)
[2018-01-06] MEDS: Aspirin 325 MG TABLET PO SCH (08:12)
--- NOTE | 2018-01-06 12:06 | Nephrology Progress Note ---
Date of Encounter: 01/06/18 Time of Encounter: 11:50 - Assessment and Plan (1) SANTANA (acute kidney injury) Current Visit: Yes Status: Acute REnal fct seems to be plateauing,. Creat 4.80. Documented urine output 1700cc. CK 1295. Will continue to monitor. (2) Rhabdomyolysis Current Visit: Yes Status: Acute Qualifiers: Rhabdomyolysis type: non-traumatic Qualified Code(s): M62.82 - Rhabdomyolysis Subjective Interval history: Laying quietly in bed. States feeling somewhat better. States had been up to commode for BM. Objective - Vital Signs Vital signs: Vital Signs Temp Pulse Resp BP Pulse Ox 01/06/18 11:09 98.1 F 61 17 113/67 94 01/06/18 07:03 98.3 F 65 17 130/68 93 01/06/18 04:30 97.8 F 61 18 126/73 93 01/05/18 23:27 97.9 F 67 18 148/72 94 01/05/18 19:50 97.5 F L 61 18 110/65 96 01/05/18 16:03 97.8 F 61 23 145/87 92 Intake and Output 01/05/18 01/06/18 01/06/18 23:59 07:59 15:59 Intake Total 1480 / 1480 1000 / 1000 120 / 120 Output Total 350 / 350 400 / 400 Balance 1130 / 1130 1000 / 1000 -280 / -280 Intake: IV Fluids 1000 / 1000 1000 / 1000 0.9 % Sodium Chloride 1,000 ML 1000 / 1000 1000 / 1000 @ 100 mls/hr IVC .Q10H [facility] Rx#: [id number] Oral 480 / 480 120 / 120 Output: Urine 350 / 350 0 / 0 Catheter 400 / 400 Other: Meal Dinner Percent of Meal Consumed 70% Weight 112.5 kg Patient Weight 01/06/18 23:59 Weight 112.5 kg - General Appearance General appearance: Present: well-developed, well-nourished, appears started age , obese EENT: Present: mucous membranes moist Neck: Present: no JVD Respiratory: Present: clear Cardiology: Present: edema, regular rate, regular rhythm Additional Comments: mild edema LE, L>R Gastrointestinal: Present: normoactive bowel sounds, no tenderness Integumentary: Present: warm and dry Neurologic: Present: alert and oriented x3 - Lab 01/06/18 06:14 01/06/18 06:14 Most recent lab results Calcium 8.1 mg/dL (8.6-10.3) L 01/06/18 06:14 Phosphorus 7.8 mg/dL (2.7-4.5) H 01/04/18 04:19 Magnesium 1.9 mg/dL (1.6-2.6) 01/04/18 04:19 Consult Discharge Plan - Plan Referrals: Payam Singh DO [Primary Care Provider] - 01/18/18 12:00 pm ()
--- NOTE | 2018-01-06 22:15 | Internal Med Progress Note ---
Date of Encounter: 01/06/18 Time of Encounter: 16:37 - Assessment and plan (1) UTI (urinary tract infection) Current Visit: Yes Status: Acute Assessment and plan: Improving. Urine culture with E. coli sensitive to rocephin. Continue IV rocephin. Continue IVF as per below. Qualifiers: Urinary tract infection type: acute cystitis Hematuria presence: with hematuria Qualified Code(s): N30.01 - Acute cystitis with hematuria (2) SANTANA (acute kidney injury) Current Visit: Yes Status: Acute Assessment and plan: Likely secondary to rhabdomyolysis. Cr worsened again. Nephrology consulted; appreciate input. They believe creatinine has plateaued. They are continuing current IVF. Repeat BMP in AM. (3) Rhabdomyolysis Current Visit: Yes Status: Acute Assessment and plan: Improving. CK continues to trend down, but renal function not improving yet. Continue IVF as per above. Continue will catheter for now. Continue to monitor strict I&Os. Repeat CK in AM. (4) Troponin level elevated Current Visit: Yes Status: Acute Assessment and plan: Likely related to rhabdomyolysis. (5) Debility Current Visit: Yes Status: Acute Assessment and plan: Generalized debility. PT/OT consulted. Plan for discharge to SNF when medically clear. (6) Paresthesia of foot, bilateral Current Visit: Yes Status: Acute Assessment and plan: Improved. Get up to chair TID. Continue home lyrica. (7) DVT prophylaxis Current Visit: Yes Status: Acute Assessment and plan: Continue lovenox. - Time Spent With Patient Total time spent is greater than 50% in coordination of care (as documented) at patient's floor/unit and/or counseling patient: less than 15 minutes - Subjective Interval history: Patient had no acute events overnight. She is in better spirits today. She denies chest pain, SOB, dysuria, fever, or chills. She states that lower back pain and BLE neuropathy is improved with resumption of home Lyrica. She has no other complaints today. - Constitutional Vitals: Temp Pulse Resp BP Pulse Ox 98.5 F 65 16 138/81 93 01/06/18 21:13 01/06/18 21:13 01/06/18 21:13 01/06/18 21:13 01/06/18 21:13 General appearance: Present: cooperative, A&O X 3, morbidly obese, pleasant, no acute distress, answers questions appropriately - Respiratory Respiratory exam: Present: CTAB. Absent: accessory muscle use, rales, rhonchi, wheezes Additional comments: Normal WOB - Cardiovascular Cardiovascular exam: Present: RRR, +S1, +S2. Absent: diastolic murmur, gallop, rubs, systolic murmur Additional comments: 2+ pitting BLE edema - GI/Abdominal GI/Abdominal exam: Present: normal bowel sounds, soft. Absent: distended, hepatomegaly, mass, splenomegaly, tenderness - Psychiatric Psychiatric exam: Present: normal affect, normal mood. Absent: agitated, anxious, depressed - Skin Skin exam: Present: dry, intact, warm. Absent: cyanosis, rash Internal Medicine: Result - Labs CBC & Chem 7: 01/06/18 06:14 01/06/18 06:14 Labs: Short CBC 01/06/18 Range/Units 06:14 WBC 4.5 (4.3-11.1) K/mcL Hgb 9.8 L (11.5-15.4) g/dL Hct 30.9 L (35.3-44.9) % Plt Count 123 L (140-400) K/mcL Neutrophils # 3.1 (1.6-8.9) K/mcL BMP 01/06/18 06:14 Sodium 141 Potassium 4.2 Chloride 108 H Carbon Dioxide 25 BUN 76 H Creatinine 4.80 H Glucose 95 Calcium 8.1 L Liver Function 01/06/18 Range/Units 06:14 Total Bilirubin 0.3 (0.3-1.0) mg/dL AST 57 H (13-39) Units/L ALT 70 H (7-52) Units/L Alkaline Phosphatase 47 (34-104) Units/L Albumin 2.2 L (3.5-5.7) g/dL Consult Discharge Plan - Plan Referrals: Payam Singh DO [Primary Care Provider] - 01/18/18 12:00 pm ()
[2018-01-07] MEDS: 0.9 % Sodium Chloride 1,000 ML IVC SCH ×2 (00:19→10:24)
[2018-01-07] MEDS: *HR* HYDROcodone/Acet 10/325 mg TABLET PO PRN ×4 (03:40→23:23)
[2018-01-07 04:58] LABS: Calcium 8.2 mg/dL (8.6-10.3); Potassium 4.3 mEq/L (3.5-5.1)
[2018-01-07] MEDS: Pregabalin 75 MG CAPSULE PO SCH (08:48)
[2018-01-07] MEDS: cloNIDine HCl 0.1 MG TABLET PO SCH ×2 (08:48→20:02)
[2018-01-07] MEDS: Folic Acid 1 MG TABLET PO SCH (08:48)
[2018-01-07] MEDS: Aspirin 325 MG TABLET PO SCH (08:48)
--- NOTE | 2018-01-07 09:27 | Nephrology Progress Note ---
Date of Encounter: 01/07/18 Time of Encounter: 09:05 - Assessment and Plan (1) SANTANA (acute kidney injury) Current Visit: Yes Status: Acute Renal fct slight improvement. Creat 4.70. Documented urine output 700cc. CK 880. Will maintain will catheter today. Will decrease IV fluids 50cc/hr. Will continue to monitor. (2) Rhabdomyolysis Current Visit: Yes Status: Acute Qualifiers: Rhabdomyolysis type: non-traumatic Qualified Code(s): M62.82 - Rhabdomyolysis Subjective Interval history: Laying quietly in bed. States feeling somewhat better. States had been up to chair today. Objective - Vital Signs Vital signs: Vital Signs Temp Pulse Resp BP Pulse Ox 01/07/18 06:26 97.6 F 62 16 121/56 91 01/07/18 03:23 97.6 F 60 17 136/76 94 01/06/18 23:22 97.8 F 62 17 127/67 93 01/06/18 21:13 98.5 F 65 16 138/81 93 01/06/18 16:05 98.3 F 67 17 134/77 95 01/06/18 11:09 98.1 F 61 17 113/67 94 Intake and Output 01/06/18 01/07/18 01/07/18 23:59 07:59 15:59 Intake Total 200 / 200 240 / 240 Output Total 300 / 300 1100 / 1100 0 / 0 Balance -100 / -100 -1100 / -1100 240 / 240 Intake: IV Fluids 200 / 200 0.9 % Sodium Chloride 1,000 ML 200 / 200 @ 100 mls/hr IVC .Q10H [facility] Rx#: [id number] Oral 240 / 240 Output: Urine 900 / 900 0 / 0 Catheter 300 / 300 200 / 200 Other: Meal Breakfast Percent of Meal Consumed 80% Weight 111 kg Patient Weight 01/07/18 23:59 Weight 111 kg - General Appearance General appearance: Present: well-developed, well-nourished, appears started age , obese EENT: Present: mucous membranes moist Neck: Present: no JVD Respiratory: Present: clear Cardiology: Present: edema, regular rate, regular rhythm Additional Comments: mild LE pitting Gastrointestinal: Present: normoactive bowel sounds, no tenderness Integumentary: Present: warm and dry Neurologic: Present: alert and oriented x3 - Lab 01/06/18 06:14 01/07/18 04:18 Most recent lab results Calcium 8.2 mg/dL (8.6-10.3) L 01/07/18 04:18 Phosphorus 7.8 mg/dL (2.7-4.5) H 01/04/18 04:19 Magnesium 1.9 mg/dL (1.6-2.6) 01/04/18 04:19 Consult Discharge Plan - Plan Referrals: Payam Singh DO [Primary Care Provider] - 01/18/18 12:00 pm ()
[2018-01-07] MEDS: cefTRIAXone 2,000 MG in Water for inj. (sterile) 20 ML 20 ML IVP SCH (10:25)
[2018-01-07] MEDS ORDERED: Saliva Stimulant 100ml BOTTLE PO PRN (15:04)
--- NOTE | 2018-01-07 22:44 | Internal Med Progress Note ---
Date of Encounter: 01/07/18 Time of Encounter: 15:07 - Assessment and plan (1) UTI (urinary tract infection) Current Visit: Yes Status: Acute Assessment and plan: Improving. Urine culture with E. coli sensitive to rocephin. Continue IV rocephin. Continue IVF as per below. Qualifiers: Urinary tract infection type: acute cystitis Hematuria presence: with hematuria Qualified Code(s): N30.01 - Acute cystitis with hematuria (2) SANTANA (acute kidney injury) Current Visit: Yes Status: Acute Assessment and plan: Likely secondary to rhabdomyolysis. Cr improved slightly today. Nephrology consulted; appreciate input. Continue IVF per nephrology recommendations; rate reduced today. Repeat BMP in AM. (3) Rhabdomyolysis Current Visit: Yes Status: Acute Assessment and plan: Improving. CK continues to trend down, and renal function now starting to improve. Continue IVF as per above. Continue will catheter for now; plan to discontinue tomorrow with continued improvement of renal function. Continue to monitor strict I&Os. Repeat CK in AM. Qualifiers: Rhabdomyolysis type: non-traumatic Qualified Code(s): M62.82 - Rhabdomyolysis (4) Troponin level elevated Current Visit: Yes Status: Acute Assessment and plan: Likely related to rhabdomyolysis. (5) Debility Current Visit: Yes Status: Acute (6) Paresthesia of foot, bilateral Current Visit: Yes Status: Chronic Assessment and plan: Get up to chair TID. Continue home lyrica. (7) DVT prophylaxis Current Visit: Yes Status: Acute Assessment and plan: Continue lovenox. - Time Spent With Patient Total time spent is greater than 50% in coordination of care (as documented) at patient's floor/unit and/or counseling patient: less than 15 minutes - Subjective Interval history: Patient had no acute events overnight. She is in good spirits today. She has finally gotten up to chair and worked with therapy. She denies chest pain, SOB , dysuria, fever, or chills. She had some vision troubles today that resolved after cleaning her glasses. She has some dry mouth. She has no other complaints today. - Constitutional Vitals: Temp Pulse Resp BP Pulse Ox 98.4 F 75 16 132/71 94 01/07/18 19:58 01/07/18 19:58 01/07/18 19:58 01/07/18 19:58 01/07/18 19:58 General appearance: Present: cooperative, A&O X 3, morbidly obese, pleasant, no acute distress, answers questions appropriately - Respiratory Respiratory exam: Present: CTAB. Absent: accessory muscle use, rales, rhonchi, wheezes Additional comments: Normal WOB - Cardiovascular Cardiovascular exam: Present: RRR, +S1, +S2. Absent: diastolic murmur, gallop, rubs, systolic murmur Additional comments: Trace BLE edema - GI/Abdominal GI/Abdominal exam: Present: normal bowel sounds, soft. Absent: distended, hepatomegaly, mass, splenomegaly, tenderness - Psychiatric Psychiatric exam: Present: normal affect, normal mood. Absent: agitated, anxious, depressed - Skin Skin exam: Present: dry, intact, warm. Absent: cyanosis, rash Internal Medicine: Result - Labs CBC & Chem 7: 01/06/18 06:14 01/07/18 04:18 Labs: BMP 01/07/18 04:18 Sodium 140 Potassium 4.3 Chloride 108 H Carbon Dioxide 25 BUN 73 H Creatinine 4.70 H Glucose 129 H Calcium 8.2 L Consult Discharge Plan - Plan Referrals: Payam Singh DO [Primary Care Provider] - 01/18/18 12:00 pm ()
[2018-01-08] MEDS: *HR* HYDROcodone/Acet 10/325 mg TABLET PO PRN ×3 (05:28→18:11)
[2018-01-08 06:01] LABS: Calcium 7.1 mg/dL (8.6-10.3)
[2018-01-08] MEDS: 0.9 % Sodium Chloride 1,000 ML IVC SCH (08:52)
[2018-01-08] MEDS: cefTRIAXone 2,000 MG in Water for inj. (sterile) 20 ML 20 ML IVP SCH (08:53)
[2018-01-08] MEDS: Aspirin 325 MG TABLET PO SCH (08:54)
[2018-01-08] MEDS: cloNIDine HCl 0.1 MG TABLET PO SCH ×2 (08:54→20:27)
[2018-01-08] MEDS: Folic Acid 1 MG TABLET PO SCH (08:54)
--- NOTE | 2018-01-08 14:08 | Nephrology Progress Note ---
Date of Encounter: 01/08/18 Time of Encounter: 13:50 - Assessment and Plan (1) SANTANA (acute kidney injury) Current Visit: Yes Status: Acute Renal fct improving. Creat 3.95. Documented urine output 1700cc. CK 654. Will maintain will catheter. Will continue IV fluids 50cc/hr. Will continue to monitor. (2) Rhabdomyolysis Current Visit: Yes Status: Acute Qualifiers: Rhabdomyolysis type: non-traumatic Qualified Code(s): M62.82 - Rhabdomyolysis Subjective Interval history: Laying quietly in bed. States eating and drinking well. Objective - Vital Signs Vital signs: Vital Signs Temp Pulse Resp BP Pulse Ox 01/08/18 11:32 98.0 F 67 17 129/75 95 01/08/18 07:44 97.5 F L 64 16 139/70 92 01/08/18 01:43 97.8 F 66 16 148/62 94 01/07/18 19:58 98.4 F 75 16 132/71 94 01/07/18 15:08 97.7 F 70 18 136/74 95 Intake and Output 01/07/18 01/08/18 01/08/18 23:59 07:59 15:59 Intake Total 20 / 20 1000 / 1000 Output Total 1100 / 1100 1325 / 1325 Balance 20 / 20 -100 / -100 -1325 / -1325 Intake: IV Fluids 20 / 20 1000 / 1000 0.9 % Sodium Chloride 1,000 ML 1000 / 1000 @ 50 mls/hr IVC .Q20H [facility] Rx#: [id number] Rocephin 2,000 MG In Water for 20 / 20 inj. (sterile) 20 ML @ 600 mls/ hr IVP DAILY [facility] Rx#:[id number] Output: Urine 500 / 500 Catheter 600 / 600 1325 / 1325 Urethral (Will) 500 / 500 1000 / 1000 Other: # Bowel Movements 0 0 - General Appearance General appearance: Present: well-developed, well-nourished, appears started age , obese EENT: Present: mucous membranes moist Neck: Present: no JVD Respiratory: Present: clear Cardiology: Present: edema, regular rate, regular rhythm Additional Comments: mild pitting LE Gastrointestinal: Present: normoactive bowel sounds, no tenderness Integumentary: Present: warm and dry Neurologic: Present: alert and oriented x3 - Lab 01/06/18 06:14 01/08/18 04:00 Most recent lab results Calcium 7.1 mg/dL (8.6-10.3) L 01/08/18 04:00 Phosphorus 7.8 mg/dL (2.7-4.5) H 01/04/18 04:19 Magnesium 1.9 mg/dL (1.6-2.6) 01/04/18 04:19 Consult Discharge Plan - Plan Referrals: Payam Singh DO [Primary Care Provider] - 01/18/18 12:00 pm ()
[2018-01-08] MEDS ORDERED: Pregabalin 75 MG CAPSULE PO SCH (21:00)
--- NOTE | 2018-01-08 21:52 | Internal Med Progress Note ---
Date of Encounter: 01/08/18 Time of Encounter: 14:47 - Assessment and plan (1) UTI (urinary tract infection) Current Visit: Yes Status: Acute Assessment and plan: Improving. Urine culture with E. coli sensitive to rocephin. Continue IV rocephin. Continue IVF as per below. Qualifiers: Urinary tract infection type: acute cystitis Hematuria presence: with hematuria Qualified Code(s): N30.01 - Acute cystitis with hematuria (2) SANTANA (acute kidney injury) Current Visit: Yes Status: Acute Assessment and plan: Improving. Likely secondary to rhabdomyolysis. Nephrology consulted; appreciate input. Continue IVF per nephrology recommendations. Hernandez catheter per nephrology recommendations. Repeat BMP in AM. (3) Rhabdomyolysis Current Visit: Yes Status: Acute Assessment and plan: Improving. CK continues to trend down, and renal function continues to improve. Continue IVF as per above. Continue to monitor strict I&Os. Repeat BMP and CK in AM. (4) Troponin level elevated Current Visit: Yes Status: Acute Assessment and plan: Likely related to rhabdomyolysis. (5) Debility Current Visit: Yes Status: Acute Assessment and plan: Generalized debility. PT/OT consulted. Plan for discharge to SNF when medically clear; accepted to [facility] today. (6) Paresthesia of foot, bilateral Current Visit: Yes Status: Chronic Assessment and plan: Get up to chair TID. Continue home lyrica. (7) DVT prophylaxis Current Visit: Yes Status: Acute Assessment and plan: Continue lovenox. - Time Spent With Patient Total time spent is greater than 50% in coordination of care (as documented) at patient's floor/unit and/or counseling patient: less than 15 minutes - Subjective Interval history: Patient had no acute events overnight. She is in good spirits today because SW told her that she has been accepted at [facility]. She states that PT/OT is going well. She denies chest pain, SOB, dysuria, fever, or chills. Dry mouth improved today with addition of Biotene. She has no complaints today. - Constitutional Vitals: Temp Pulse Resp BP Pulse Ox 97.7 F 66 18 131/80 96 01/08/18 19:51 01/08/18 19:51 01/08/18 19:51 01/08/18 19:51 01/08/18 19:51 General appearance: Present: cooperative, A&O X 3, morbidly obese, pleasant, no acute distress, answers questions appropriately - Respiratory Respiratory exam: Present: CTAB. Absent: accessory muscle use, rales, rhonchi, wheezes Additional comments: Normal WOB - Cardiovascular Cardiovascular exam: Present: RRR, +S1, +S2. Absent: diastolic murmur, gallop, rubs, systolic murmur Additional comments: Trace BLE edema - GI/Abdominal GI/Abdominal exam: Present: normal bowel sounds, soft. Absent: distended, hepatomegaly, mass, splenomegaly, tenderness - Psychiatric Psychiatric exam: Present: normal affect, normal mood. Absent: agitated, anxious, depressed - Skin Skin exam: Present: dry, intact, warm. Absent: cyanosis, rash Internal Medicine: Result - Labs CBC & Chem 7: 01/06/18 06:14 01/08/18 04:00 Labs: BMP 01/08/18 04:00 Sodium 142 Potassium 4.0 Chloride 114 H Carbon Dioxide 22 L BUN 68 H Creatinine 3.95 H Glucose 90 Calcium 7.1 L Consult Discharge Plan - Plan Referrals: Payam Singh DO [Primary Care Provider] - 01/18/18 12:00 pm ()
[2018-01-09] MEDS: 0.9 % Sodium Chloride 1,000 ML IVC SCH ×2 (00:16→04:30)
[2018-01-09 05:38] LABS: Basophils % 0.2 %; Eosinophils # 0.2 K/mcL (0.0-0.6); Eosinophils % 3.2 %; Hematocrit 29.2 % (35.3-44.9); Immature Granulocytes % 1.9 % (0-4); Lymphocytes # 1.1 K/mcL (0.6-4.6); Lymphocytes % 23.8 %; Mean Corpuscular HGB Conc 30.8 g/dL (31.6-35.5); Mean Corpuscular Hemoglobin 30.4 pg (28.0-33.3); Mean Corpuscular Volume 98.6 fL (83.0-100.0); Mean Platelet Volume 11.6 fL (9.4-12.4); Monocytes # 0.5 K/mcL (0.0-1.3); Monocytes % 9.9 %; Neutrophils # 2.9 K/mcL (1.6-8.9); Platelet Count 144 K/mcL (140-400); Red Blood Count 2.96 M/mcL (3.82-4.97); Red Cell Distribution Width 14.9 % (11.5-14.5)
[2018-01-09 05:44] LABS: Calcium 8.2 mg/dL (8.6-10.3); Potassium 4.7 mEq/L (3.5-5.1)
[2018-01-09] MEDS: *HR* HYDROcodone/Acet 10/325 mg TABLET PO PRN ×2 (08:17)
[2018-01-09] MEDS: cefTRIAXone 2,000 MG in Water for inj. (sterile) 20 ML 20 ML IVP SCH (08:17)
[2018-01-09] MEDS: cloNIDine HCl 0.1 MG TABLET PO SCH (08:17)
[2018-01-09] MEDS: Folic Acid 1 MG TABLET PO SCH (08:18)
[2018-01-09] MEDS: Aspirin 325 MG TABLET PO SCH (08:18)
--- NOTE | 2018-01-09 09:52 | Nephrology Progress Note ---
Date of Encounter: 01/09/18 Time of Encounter: 09:35 - Assessment and Plan (1) SANTANA (acute kidney injury) Current Visit: Yes Status: Acute Creat bumped 4.58. Unclear why. Documented urine output 3275cc. CK 421. Will continue to monitor. If discharged to nursing facility, will follow outpatient . RFP twice weekly with results to office. (2) Rhabdomyolysis Current Visit: Yes Status: Acute Qualifiers: Rhabdomyolysis type: non-traumatic Qualified Code(s): M62.82 - Rhabdomyolysis Subjective Interval history: Laying quietly in bed. States eating and drinking well. Concerned about having catheter removed due to urgency of urination and staff not assisting in time. Discussd with patient increased risk of infection. Objective - Vital Signs Vital signs: Vital Signs Temp Pulse Resp BP Pulse Ox 01/09/18 08:31 97.8 F 76 19 145/76 96 01/09/18 05:00 98.0 F 60 18 132/70 92 01/08/18 19:51 97.7 F 66 18 131/80 96 01/08/18 15:55 97.8 F 63 16 120/61 97 01/08/18 11:32 98.0 F 67 17 129/75 95 Intake and Output 01/08/18 01/09/18 01/09/18 23:59 07:59 15:59 Intake Total 20 / 20 1000 / 1000 360 / 360 Output Total 550 / 550 600 / 600 Balance -530 / -530 400 / 400 360 / 360 Intake: IV Fluids 20 / 20 1000 / 1000 0.9 % Sodium Chloride 1,000 ML 1000 / 1000 @ 50 mls/hr IVC .Q20H [facility] Rx#: [id number] Rocephin 2,000 MG In Water for 20 / 20 inj. (sterile) 20 ML @ 600 mls/ hr IVP DAILY [facility] Rx#:[id number] Oral 0 / 0 0 / 0 360 / 360 Output: Urine 600 / 600 Catheter 550 / 550 Other: Meal Vanilla Ice cream Cup Lunch Percent of Meal Consumed 100% 100% Weight 111.8 kg Patient Weight 01/09/18 23:59 Weight 111.8 kg - General Appearance General appearance: Present: well-developed, well-nourished, appears started age , obese EENT: Present: mucous membranes moist Neck: Present: no JVD Cardiology: Present: edema, regular rate, regular rhythm Additional Comments: mild pitting Gastrointestinal: Present: normoactive bowel sounds, no tenderness Integumentary: Present: warm and dry Neurologic: Present: alert and oriented x3 - Lab 01/09/18 04:49 01/09/18 04:49 Most recent lab results Calcium 8.2 mg/dL (8.6-10.3) L 01/09/18 04:49 Phosphorus 7.8 mg/dL (2.7-4.5) H 01/04/18 04:19 Magnesium 1.9 mg/dL (1.6-2.6) 01/04/18 04:19 Consult Discharge Plan - Plan Referrals: Payam Singh DO [Primary Care Provider] - 01/18/18 12:00 pm ()
--- NOTE | 2018-01-09 10:06 | Discharge Summary ---
- NOTES TO OUTPATIENT PROVIDER Notes to Outpatient Provider: Follow up with SNF physician. Obtain BMP twice weekly and forward results to sql data architect. Pull will catheter in 1-2 days. Follow up with sql data architect as directed. Date of Encounter: 01/09/18 Time of Encounter: 10:04 - Discharge Diagnosis (1) UTI (urinary tract infection) Priority: Primary Status: Resolved Qualifiers: Urinary tract infection type: acute cystitis Hematuria presence: with hematuria Qualified Code(s): N30.01 - Acute cystitis with hematuria (2) SANTANA (acute kidney injury) Priority: Secondary Status: Acute (3) Rhabdomyolysis Priority: Secondary Status: Acute (4) Troponin level elevated Priority: Secondary Status: Acute (5) Debility Priority: Secondary Status: Acute (6) Paresthesia of foot, bilateral Priority: Secondary Status: Chronic (7) DVT prophylaxis Priority: Secondary Status: Acute Hospital course: Ms. Arnett is a 72 year old white female admitted for AMS, UTI, and SANTANA. She was admitted to general medical floor with telemetry. She was started on IVF and IV rocephin. She had taken too much pain medication at home, so home morphine and norco were held. Home norco was restarted after improvement of mentation. She was found to have rhabdomyolysis, likely due to fall. Nephrology was consulted, and they adjusted IVF. Creatinine initially worsened , but then started to improve. It worsened slightly again today. Blood pressure improved with IVF. PT/OT were consulted for generalized debility, and they recommended SNF. SW worked on placement to [facility]. Nephrology signed off on patient today and recommended renal panel twice weekly while at SNF and outpatient follow up in their clinic. She states that she is doing great today. She will be discharged with will catheter because she insists that she needs it due to debility. I counselled her on risks. She agrees to have it pulled at SNF after a few more days. She completed 7 days of IV antibiotics for UTI. Patient has met maximum benefit of this hospitalization and will be discharged to [facility] in stable condition. Discharge discussed with: patient, nurse, outbound sales consultant (Mechanic'S Assistant) - Time Spent with Patient Total time spent providing and/or coordinating discharge services: Greater than 30 minutes - Discharge Medications Prescriptions: HYDROcodone/Acet 10/325 mg [Zahl 10-325 mg] 1 tab PO Q6HR PRN 4 Days #15 tablet PRN Reason: Pain Home Medications: Aspirin 325 mg PO QAM 06/11/15 [History] Carvedilol [Coreg] 3.125 mg PO BID 06/11/15 [History] Cyanocobalamin (Vitamin B-12) [Vitamin B-12] 1,000 mcg IJ QMONTH 06/11/15 [ History] Ergocalciferol (VITAMIN D2) [Vitamin D2 (50,000 UNIT)] 50,000 unit PO 2XW [History] Losartan [Cozaar] 50 mg PO QAM 06/11/15 [History] Pregabalin [Lyrica] 75 mg PO BID 06/11/15 [History] Rifaximin [Xifaxan] 200 mg PO BID PRN 06/11/15 [History] cloNIDine HCl [CloNIDine HCl] 0.1 mg PO BID 06/11/15 [History] Citalopram Hydrobromide [Citalopram HBr] 20 mg PO DAILY 01/02/18 [History] Diphenoxylate/Atropine [Lomotil 2.5 mg/0.025 mg] 1 tab PO DAILY PRN 01/02/18 [ History] Folic Acid 1 mg PO DAILY 01/02/18 [History] HYDROcodone/Acet 10/325 mg [Zahl 10-325 mg] 1 tab PO Q6HR PRN 4 Days #15 tablet 01/09/18 [Rx] Saliva Stimulant [Biotene Moisturizing Rinse] 1 spray PO Q2H PRN bottle [Rx] Allergies/Adverse Reactions: 3 Allergy/AdvReac Type Severity Reaction Status Date / Time adhesive tape Allergy Blister Verified 05/20/17 15:32 Amoxicillin Allergy Rash Verified 05/20/17 15:32 Date of admission: 01/02/18 17:12 Primary care physician: Hu Mckinley Consults: 01/02/18 20:06 Consult to Nephrology [CONS] Stat Consulting Provider: [facility] Reason for Consult: Rhabdomyolysis, SANTANA Call Completed: Yes 01/04/18 10:04 Consult to Occupational Therapy [CONS] Routine Comment: Evaluate, develop and implement POC Reason for Consult: may need ecf, very weak Does patient have active BEDREST order?: No Is patient medically & hemodynamically stable?: Yes Consult to Physical Therapy [CONS] Routine Comment: Evaluate, develop and implement POC Reason for Consult: may need ecf, very weak Does patient have active BEDREST order?: No Is patient medically & hemodynamically stable?: Yes 01/06/18 19:10 Consult to Invasive Line Access Team [CONS] Routine Reason for Consult: Limited vascular Access Line Type: EPIV Discharging clinician: Anoop Hart Anticipated date of discharge: 01/09/18 - Constitutional Vitals: Temp Pulse Resp BP Pulse Ox 97.8 F 76 19 145/76 96 01/09/18 08:31 01/09/18 08:31 01/09/18 08:31 01/09/18 08:31 01/09/18 08:31 General appearance: Present: cooperative, A&O X 3, morbidly obese, pleasant, no acute distress, answers questions appropriately - Respiratory Respiratory exam: Present: CTAB. Absent: accessory muscle use, rales, rhonchi, wheezes Additional comments: Normal WOB - Cardiovascular Cardiovascular exam: Present: RRR, +S1, +S2. Absent: diastolic murmur, gallop, rubs, systolic murmur Additional comments: Trace BLE edema - GI/Abdominal GI/Abdominal exam: Present: normal bowel sounds, soft. Absent: distended, hepatomegaly, mass, splenomegaly, tenderness - Psychiatric Psychiatric exam: Present: normal affect, normal mood. Absent: agitated, anxious, depressed - Skin Skin exam: Present: dry, intact, warm. Absent: cyanosis, rash - Patient Status Disposition: Transfer SNF Condition: Good Overall status at discharge: patient is progressing back to baseline - Discharge Instructions Follow Up With: Payam Singh DO [Primary Care Provider] - 01/18/18 12:00 pm () Additional Instructions: Follow up with SNF physician. Obtain BMP twice weekly and forward results to sql data architect. Pull will catheter in 1-2 days. Follow up with sql data architect as directed. - Diet and Activity Activity: as per physical therapy Diet: low fat, low cholesterol, low salt diet, other (Cardiac Diet) - VTE Documentation of Mechanical Device: Intermittent pneumatic compression device
--- NOTE | 2018-01-09 10:18 | Physician Discharge Referral ---
ExtendedCare Referral Info Transfer To: [facility] Provider in Charge after Transfer: Other ([facility] Physician) Institutional Level of Care: Skilled - Diagnosis (1) UTI (urinary tract infection) Priority: Primary Status: Resolved (2) SANTANA (acute kidney injury) Priority: Secondary Status: Acute (3) Rhabdomyolysis Priority: Secondary Status: Acute (4) Troponin level elevated Priority: Secondary Status: Acute (5) Debility Priority: Secondary Status: Acute (6) Paresthesia of foot, bilateral Priority: Secondary Status: Chronic (7) DVT prophylaxis Priority: Secondary Status: Acute Prognosis: Fair Aware of Diagnosis: Patient Aware of Prognosis: Patient - Transfer Medications Prescriptions: HYDROcodone/Acet 10/325 mg [Chaffee 10-325 mg] 1 tab PO Q6HR PRN 4 Days #15 tablet PRN Reason: Pain Home Medications: Aspirin 325 mg PO QAM 06/11/15 [History] Carvedilol [Coreg] 3.125 mg PO BID 06/11/15 [History] Cyanocobalamin (Vitamin B-12) [Vitamin B-12] 1,000 mcg IJ QMONTH 06/11/15 [ History] Ergocalciferol (VITAMIN D2) [Vitamin D2 (50,000 UNIT)] 50,000 unit PO 2XW [History] Losartan [Cozaar] 50 mg PO QAM 06/11/15 [History] Pregabalin [Lyrica] 75 mg PO BID 06/11/15 [History] Rifaximin [Xifaxan] 200 mg PO BID PRN 06/11/15 [History] cloNIDine HCl [CloNIDine HCl] 0.1 mg PO BID 06/11/15 [History] Citalopram Hydrobromide [Citalopram HBr] 20 mg PO DAILY 01/02/18 [History] Diphenoxylate/Atropine [Lomotil 2.5 mg/0.025 mg] 1 tab PO DAILY PRN 01/02/18 [ History] Folic Acid 1 mg PO DAILY 01/02/18 [History] HYDROcodone/Acet 10/325 mg [Chaffee 10-325 mg] 1 tab PO Q6HR PRN 4 Days #15 tablet 01/09/18 [Rx] Saliva Stimulant [Biotene Moisturizing Rinse] 1 spray PO Q2H PRN bottle [Rx] Allergies/Adverse Reactions: 3 Allergy/AdvReac Type Severity Reaction Status Date / Time adhesive tape Allergy Blister Verified 05/20/17 15:32 Amoxicillin Allergy Rash Verified 05/20/17 15:32 - Respiratory Orders None Smoking Cessation: Smoking cessation has been advised. For more information, call the [place] Tobacco Quit Line at 5-600-QFYN-NOW. - Mobility Orders Other (Per physical therapy) - Rehabiliation Orders Rehab Potential: Fair Rehab Orders: Evaluation for Physical Therapy, Evaluation for Occupational Therapy - Diet Orders No Added Salt (MITCH), Cardiac CERTIFICATION: I certify that the transfer of the above named patient to an Extended Care Facility is necessary for the continuing treatment of the diagnosis listed. The above information is true and accurate reflection of patient's current condition. Confidential - Redisclosure prohibited without a patient's written consent.
[2018-01-09 12:02] VITALS: BP 150/78
== END 2018-01-09 14:08 | DRG 690 ==
LOC: 2ANU 12:47 → EMEROO 12:47 → 2ANU 17:15
PROVIDERS: ADMIT General Practice; ATTEND Family Medicine

== ENCOUNTER 2020-11-30 08:54 | Inpatient (IN) ==
[2020-11-30] MEDS ORDERED: 0.9 % Sodium Chloride 500 ML IVC STA ×2 (09:12→10:22)
[2020-11-30 09:20] LABS: Bacteria,Urine Moderate per hpf (None-Few); Bilirubin,Urine Negative (Negative); Blood,Urine Moderate (Negative); Clarity,Urine Ex.Turbid (Clear); Color,Urine Yellow (Yellow); Glucose,Urine (UA) Normal (Normal); Hyaline Casts,Urine Few per lpf (None Seen); Ketones,Urine Negative (Negative); Leukocyte Esterase,Urine Large (Negative); Mucus,Urine Few per lpf (None-Few); Nitrite,Urine Positive (Negative); Protein,Urine 30 mg/dL (Neg-Trace); RBC,Urine 15-30 per hpf (0-3); Renal Epithelial Cells,Urine Few per hpf (None-Few); Specific Gravity,Urine 1.015 (1.010-1.025); Squamous Epithelial Cell,Urine Many per hpf (None-Few); Transitional Epi Cells,Urine Few per hpf (None-Few); Urobilinogen,Urine Normal (Normal); WBC,Urine TNTC per hpf (0-3)
[2020-11-30 09:53] LABS: Hematocrit 42.5 % (35.3-44.9); Mean Corpuscular HGB Conc 30.6 g/dL (31.6-35.5); Mean Corpuscular Hemoglobin 31.6 pg (28.0-33.3); Mean Corpuscular Volume 103.4 fL (83.0-100.0); Mean Platelet Volume 10.7 fL (9.4-12.4); Platelet Count 134 K/mcL (140-400); Red Blood Count 4.11 M/mcL (3.82-4.97); Red Cell Distribution Width 12.1 % (11.5-14.5); White Blood Count 4.2 K/mcL (4.3-11.1)
[2020-11-30 10:03] LABS: Calcium 8.5 mg/dL (8.6-10.3); Potassium 3.8 mEq/L (3.5-5.1)
[2020-11-30] MEDS ORDERED: cefTRIAXone 1,000 MG in 0.9 % Sodium Chloride Mini Bag 100 ML IVPB ONE (10:25)
[2020-11-30] MEDS ORDERED: *HR* HYDROcodone/Acet 5/325 mg TABLET PO ONE (11:00)
[2020-11-30 11:32] LABS: Lymphocytes # 0.1 K/mcL (0.6-4.6); Neutrophils # 4.1 K/mcL (1.6-8.9)
[2020-11-30 11:33] LABS: Platelet Estimate Decreased (Normal)
[2020-11-30] MEDS ORDERED: Naloxone 0.4 MG/ML INJ IVP PRN ×2 (13:18→20:35)
[2020-11-30] MEDS ORDERED: cefTRIAXone 1,000 MG in Water for inj. (sterile) 10 ML IVP ONE (15:00)
[2020-11-30] MEDS ORDERED: Acetaminophen 325 MG TABLET PO PRN (15:35)
[2020-11-30] MEDS ORDERED: *HR* FentaNYL (PF) 100 MCG/2 ML VIAL ONE (18:34)
[2020-11-30] MEDS ORDERED: *HR* Propofol 200 MG/20 ML VIAL IVP ONE (18:34)
[2020-11-30] MEDS ORDERED: *HR* Succinylcholine 200 MG/10 ML VIAL IVP ONE (18:35)
[2020-11-30] MEDS ORDERED: Lidocaine -MPF 2% 2 ML VIAL ONE (18:35)
[2020-11-30] MEDS ORDERED: Ondansetron 4 MG/2 ML VIAL IVP PRN (18:40)
[2020-11-30] MEDS ORDERED: *HR* OxyCODONE Immed Rel 5 MG TABLET PO PRN (18:40)
[2020-11-30] MEDS ORDERED: Promethazine 6.25 MG in Water for inj. (sterile) 20 ML IVPB PRN (18:40)
[2020-11-30] MEDS ORDERED: *HR* PHENYLEPHRINE 1,000 MCG/10 ML SYRINGE IVP ONE (19:07)
[2020-11-30] MEDS: *HR* HYDROmorphone (PF) 1 MG/ML SYRINGE IVP PRN ×2 (19:32→19:51)
[2020-11-30] MEDS: Acetaminophen 325 MG TABLET PO PRN (21:44)
[2020-12-01] MEDS: *HR* HYDROcodone/Acet 5/325 mg TABLET PO PRN ×5 (00:43→20:57)
[2020-12-01] MEDS: Acetaminophen 325 MG TABLET PO PRN ×2 (03:04→18:02)
[2020-12-01 05:55] LABS: Basophils % 0.2 %; Eosinophils # 0.1 K/mcL (0.0-0.6); Eosinophils % 1.3 %; Hematocrit 39.1 % (35.3-44.9); Hemoglobin 12.1 g/dL (11.5-15.4); Immature Granulocytes % 0.5 % (0-4); Immature Platelets 2.9 % (1.1-6.1); Lymphocytes # 0.5 K/mcL (0.6-4.6); Lymphocytes % 4.4 %; Mean Corpuscular HGB Conc 30.9 g/dL (31.6-35.5); Mean Corpuscular Hemoglobin 32.7 pg (28.0-33.3); Mean Corpuscular Volume 105.7 fL (83.0-100.0); Mean Platelet Volume 10.9 fL (9.4-12.4); Monocytes # 0.5 K/mcL (0.0-1.3); Monocytes % 4.8 %; Neutrophils # 9.9 K/mcL (1.6-8.9); Platelet Count 106 K/mcL (140-400); Red Cell Distribution Width 12.6 % (11.5-14.5); Segmented Neutrophils % 88.8 %; White Blood Count 11.1 K/mcL (4.3-11.1)
[2020-12-01 06:08] LABS: Potassium 4.3 mEq/L (3.5-5.1)
[2020-12-01] MEDS ORDERED: Melatonin 3 MG TABLET PO PRN (08:05)
[2020-12-01] MEDS ORDERED: Ringers Solution, Lactated 1,000 ML IVC SCH (08:15)
[2020-12-01 08:23] LABS: Magnesium 1.8 mg/dL (1.6-2.6); Phosphorous 3.8 mg/dL (2.7-4.5)
[2020-12-01] MEDS ORDERED: *HR* OxyCODONE Immed Rel 5 MG TABLET PO PRN (08:23)
[2020-12-01] MEDS ORDERED: *HR* FentaNYL PATCH 25 MCG PATCH TD SCH (09:00)
[2020-12-01] MEDS ORDERED: cefTRIAXone 2,000 MG in Water for inj. (sterile) 20 ML IVP SCH (09:00)
[2020-12-01] MEDS ORDERED: CITALOPRAM HYDROBROMIDE 40 MG PO SCH (09:00)
[2020-12-01] MEDS ORDERED: Morphine Sulfate 2 MG/ML SYRINGE IVP ONE (09:17)
[2020-12-01] MEDS: Multivit/Ca/Min/Fe/FA 1 TAB TABLET PO SCH (09:24)
[2020-12-01] MEDS: Aspirin 325 MG TABLET PO SCH (09:24)
[2020-12-01] MEDS: Folic Acid 1 MG TABLET PO SCH (09:24)
[2020-12-01] MEDS: Cholecalciferol (D-3) 1,000 UNIT (25MCG) TABLET PO SCH (09:24)
[2020-12-01] MEDS: Furosemide 20 MG TABLET PO SCH (09:24)
[2020-12-01] MEDS: Cyanocobalamin (B-12) 1,000 MCG TABLET PO SCH (09:24)
[2020-12-01] MEDS: cefTRIAXone 2,000 MG in Water for inj. (sterile) 20 ML IVP SCH (09:28)
[2020-12-01] MEDS: carvediloL 6.25 MG TABLET PO SCH ×2 (09:28→15:51)
[2020-12-01] MEDS: Calcium Gluconate 1gm/50mL 1 GM/50 ML BAG IVPB SCH (09:43)
[2020-12-01] MEDS ORDERED: *HR* FentaNYL PATCH 75 MCG PATCH TD SCH (10:00)
[2020-12-02] MEDS: *HR* HYDROcodone/Acet 5/325 mg TABLET PO PRN ×6 (01:05→22:34)
[2020-12-02 03:21] LABS: Basophils % 0.2 %; Eosinophils # 0.2 K/mcL (0.0-0.6); Eosinophils % 2.6 %; Hematocrit 38.9 % (35.3-44.9); Immature Granulocytes % 0.4 % (0-4); Lymphocytes # 0.9 K/mcL (0.6-4.6); Lymphocytes % 10.5 %; Mean Corpuscular HGB Conc 30.8 g/dL (31.6-35.5); Mean Corpuscular Hemoglobin 32.7 pg (28.0-33.3); Mean Platelet Volume 11.6 fL (9.4-12.4); Monocytes # 0.4 K/mcL (0.0-1.3); Monocytes % 4.9 %; Platelet Count 108 K/mcL (140-400); Red Blood Count 3.67 M/mcL (3.82-4.97); Red Cell Distribution Width 12.8 % (11.5-14.5); Segmented Neutrophils % 81.4 %; White Blood Count 8.6 K/mcL (4.3-11.1)
[2020-12-02 03:30] LABS: Calcium 8.1 mg/dL (8.6-10.3); Magnesium 2.1 mg/dL (1.6-2.6); Phosphorous 3.1 mg/dL (2.7-4.5); Potassium 4.3 mEq/L (3.5-5.1)
[2020-12-02 03:50] LABS: % Iron Saturation 6 % (15-50); Ferritin 113 ng/mL (10-120); Iron 18 mcg/dL (50-170); Transferrin 198 mg/dL (203-362)
[2020-12-02 03:56] LABS: Folate > 22.3 ng/mL (3.0-16.0); Vitamin B12 531 pg/mL (250-1100)
[2020-12-02] MEDS: Acetaminophen 325 MG TABLET PO PRN ×2 (04:41→12:31)
[2020-12-02] MEDS: *HR* Heparin 5,000 UNIT/ML VIAL SQ SCH ×2 (04:41→18:30)
[2020-12-02] MEDS ORDERED: Iron Sucrose Complex 400 MG in 0.9 % Sodium Chloride 250 ML IVPB ONE (07:52)
[2020-12-02] MEDS: carvediloL 6.25 MG TABLET PO SCH ×2 (08:25→18:30)
[2020-12-02] MEDS: Furosemide 20 MG TABLET PO SCH (08:25)
[2020-12-02] MEDS: Cholecalciferol (D-3) 1,000 UNIT (25MCG) TABLET PO SCH (08:25)
[2020-12-02] MEDS: Multivit/Ca/Min/Fe/FA 1 TAB TABLET PO SCH (08:25)
[2020-12-02] MEDS: Aspirin 325 MG TABLET PO SCH (08:25)
[2020-12-02] MEDS: Cyanocobalamin (B-12) 1,000 MCG TABLET PO SCH (08:25)
[2020-12-02] MEDS: Folic Acid 1 MG TABLET PO SCH (08:26)
[2020-12-02] MEDS: cefTRIAXone 2,000 MG in Water for inj. (sterile) 20 ML IVP SCH (08:26)
[2020-12-02] MEDS: Calcium Gluconate 1gm/50mL 1 GM/50 ML BAG IVPB SCH ×2 (12:22→14:32)
[2020-12-03 02:26] LABS: Basophils % 0.3 %; Hematocrit 41.4 % (35.3-44.9); Red Blood Count 3.98 M/mcL (3.82-4.97); Red Cell Distribution Width 12.5 % (11.5-14.5)
[2020-12-03 02:28] LABS: Eosinophils # 0.2 K/mcL (0.0-0.6); Eosinophils % 2.8 %; Hemoglobin 12.6 g/dL (11.5-15.4); Immature Granulocytes % 0.3 % (0-4); Immature Platelets 4.6 % (1.1-6.1); Lymphocytes % 13.2 %; Mean Corpuscular HGB Conc 30.4 g/dL (31.6-35.5); Mean Corpuscular Hemoglobin 31.7 pg (28.0-33.3); Mean Platelet Volume 11.1 fL (9.4-12.4); Monocytes # 0.5 K/mcL (0.0-1.3); Monocytes % 6.1 %; Neutrophils # 5.8 K/mcL (1.6-8.9); Platelet Count 116 K/mcL (140-400); Segmented Neutrophils % 77.3 %; White Blood Count 7.5 K/mcL (4.3-11.1)
[2020-12-03] MEDS: *HR* HYDROcodone/Acet 5/325 mg TABLET PO PRN ×2 (02:36→08:51)
[2020-12-03 02:44] LABS: BUN/Creatinine Ratio 22 (6-26); Blood Urea Nitrogen 23 mg/dL (8-23); Calcium 8.8 mg/dL (8.6-10.3); Carbon Dioxide 21 mEq/L (23-29); Chloride 108 mEq/L (98-107); Glucose 103 mg/dL (70-105); Magnesium 2.1 mg/dL (1.6-2.6); Osmolality,Calculated 288 (280-300); Phosphorous 3.5 mg/dL (2.7-4.5); Potassium 4.3 mEq/L (3.5-5.1); Sodium 137 mEq/L (136-145); eGFR For African Americans > 60 (> 60); eGFR For Non-African Americans 52 (> 60)
[2020-12-03] MEDS: *HR* Heparin 5,000 UNIT/ML VIAL SQ SCH (06:30)
[2020-12-03 07:28] VITALS: BP 122/77
[2020-12-03] MEDS: Calcium Gluconate 1gm/50mL 1 GM/50 ML BAG IVPB SCH (07:46)
[2020-12-03] MEDS: Aspirin 325 MG TABLET PO SCH (08:51)
[2020-12-03] MEDS: Folic Acid 1 MG TABLET PO SCH (08:51)
[2020-12-03] MEDS: Furosemide 20 MG TABLET PO SCH (08:51)
[2020-12-03] MEDS: Cyanocobalamin (B-12) 1,000 MCG TABLET PO SCH (08:51)
[2020-12-03] MEDS: Multivit/Ca/Min/Fe/FA 1 TAB TABLET PO SCH (08:51)
[2020-12-03] MEDS: carvediloL 6.25 MG TABLET PO SCH (08:52)
[2020-12-03] MEDS: Cholecalciferol (D-3) 1,000 UNIT (25MCG) TABLET PO SCH (08:52)
[2020-12-03] MEDS ORDERED: Cefdinir 300 MG CAPSULE PO SCH (09:00)
[2020-12-03] MEDS ORDERED: Iron Sucrose Complex 400 MG in 0.9 % Sodium Chloride 250 ML IVPB ONE (10:30)
[2020-12-03] MEDS: Acetaminophen 325 MG TABLET PO PRN (11:09)
[2020-12-03] MEDS ORDERED: *HR* HYDROcodone/Acet 5/325 mg TABLET PO PRN (15:16)
== END 2020-12-03 15:53 | disposition home health service (06) | DRG 854 ==
LOC: 3BNU 08:54 → EMEROOARM 08:54 → 3BNU 15:05 → SUATTDRO 17:48
PROVIDERS: ADMIT Internal Medicine; ATTEND Internal Medicine